=== PATIENT | female | born 1955 | race Caucasian/White ===

== ENCOUNTER 2021-03-25 09:55 | Inpatient (IN) ==
--- NOTE | 2021-03-25 10:17 | Emergency Department Note ---
HPI General Chief complaint: Fall Stated complaint: fall Time Seen by Provider: 03/25/21 09:57 Source: patient Mode of arrival: wheelchair Limitations: no limitations History of Present Illness HPI Narrative: Narrative: Patient presents emergency department for evaluation frequent falls. She states she fell a couple times this morning and then as well a couple times yesterday afternoon. No injury in the fall. Denies being out of any of her medication. No fever. His abdominal pain which is chronic in nature. She is had several recent visits to the emergency department. Nurse reports that the patient asked her if she was going on a float trip soon. Patient seemed a little bit confused to the nurse. Patient also complains of abdominal distention, decreased appetite, generalized weakness. No other complaints. Related Data Home Medications Medication Instructions Recorded Confirmed bupropion HCl 150 mg PO DAILY 07/06/15 02/10/21 buprenorphine-naloxone 8 mg PO TID 10/18/15 02/10/21 furosemide 20 mg PO PRN PRN 10/18/15 02/10/21 omeprazole 40 mg PO DAILY 10/18/15 02/10/21 rizatriptan [Maxalt] 5 mg PO PRN PRN 10/18/15 02/10/21 aripiprazole 5 mg PO HS 07/30/20 02/10/21 gabapentin 300 mg PO DAILY 07/30/20 02/10/21 losartan 50 mg PO DAILY 07/30/20 02/10/21 oxycodone 5 mg PO TID 07/30/20 02/10/21 cyanocobalamin (vitamin B-12) 1,000 mcg IM QMONTH 11/09/20 02/10/21 nortriptyline 50 mg PO QHS 11/09/20 02/10/21 vitamin A-vitamin C-vit E-min 1 tab PO QDAY 11/09/20 02/10/21 [Ocuvite] Previous Rx's Medication Instructions Recorded ondansetron HCl [Zofran] 4 mg PO Q8H PRN #14 tab 09/06/20 tramadol 50 mg tablet 50 mg PO Q6H PRN #10 tab 03/01/21 Allergies Allergy/AdvReac Type Severity Reaction Status Date / Time meperidine [From DEMEROL] AdvReac Unknown NAUSEA Verified 03/24/21 14:34 Review of Systems ROS ROS Narrative: Narrative: As above, all other systems reviewed and negative. [facility] Narrative Patient History Narrative: Narrative: Reviewed Medical/Surgical/Family History All Active Problems (Updated 03/25/21 @ 16:01 by Silas Candelaria MD) Abdominal pain, chronic, epigastric (Acute) Chronic abdominal pain (Acute) Chronic pain (Acute) Hypokalemia (Acute) Confusion (Acute) Abdominal pain (Acute) Alcohol abuse (Acute) Abdominal pain (Acute) Breakdown (mechanical) of implanted electronic neurostimulator, generator, initial encounter (Acute) Acute nausea with nonbilious vomiting (Acute) Acute exacerbation of chronic low back pain (Acute) Intractable cyclical vomiting with nausea (Acute) Dehydration (Acute) Elevated liver enzymes (Acute) Fatty infiltration of liver (Acute) Nausea & vomiting (Acute) Abdominal pain (Acute) Chronic pain of right hip (Acute) Radiculopathy of lumbar region (Acute) Trochanteric bursitis of right hip (Chronic) History of surgery (Chronic) Migraine (Chronic) Chronic bronchitis (Chronic) Depression (Chronic) GERD (gastroesophageal reflux disease) (Chronic) Degenerative joint disease (Chronic) Restless leg syndrome (Chronic) Chronic pain (Chronic) Radiculopathy, thoracic region (Chronic) Osteopenia (Chronic) Other specified complication of other internal prosthetic devices, implants and grafts, initial encounter (Chronic) Radiculopathy, lumbar region (Chronic) Lumbar paraspinal muscle spasm (Chronic) Back pain (Chronic) Lumbosacral disc disease (Chronic) Medical History Back pain Breakdown (mechanical) of implanted electronic neurostimulator, generator, initial encounter Chronic bronchitis Chronic pain Degenerative joint disease Depression GERD (gastroesophageal reflux disease) Lumbar paraspinal muscle spasm Migraine Osteopenia Other specified complication of other internal prosthetic devices, implants and grafts, initial encounter Radiculopathy, lumbar region Radiculopathy, thoracic region Restless leg syndrome Trochanteric bursitis of right hip Surgical History H/O: hysterectomy History of Anthony-en-Y gastric bypass History of surgery TF JEFF #1 Rt L1-2 w/sed 06/04/1911/10 TF JEFF #2 Rt L1-2 w/sed 11/20/1811/10 TF JEFF #1 Rt. L1-2 w/sed 10/28/201801/07 SCS IPG Unit re-anchoring w/sed 12/31/201511/07 SCS Permanent [facility] 11/05/1509/07 SCS Trial w/sed 09/02/201512/02 SCS Trial 12/22/09 w/sed 07/04 TESI #1, T8-9 Hx of cholecystectomy Family History Other No pertinent family history Social History Smoking Status: Former smoker Alcohol Intake Frequency: 2+ drinks per day Substance Use: does not use Exam Narrative Narrative: Narrative: Blood pressure 118/71 pulse 122 respirations 18 temperature 97.7 rest satting 100%. General Limitations: no limitations Head Head: Present atraumatic and normocephalic Eye Eye: Present normal appearance and PERRL ENT ENT: Present normal exam and normal oropharynx Neck Neck: Present normal inspection and full ROM Respiratory Respiratory: Absent respiratory distress Adbominal Abdominal: Present soft and other (No tenderness elicited on palpation); Absent distention, tenderness, guarding, rebound and rigidity Extremities Extremities: Present normal inspection and full ROM Neurological Neurological: Present alert, CN II-XII intact and motor sensory deficit Psychiatric Psychiatric: Present normal affect and normal mood Skin Skin: Present warm (WNL) and dry Course Vital Signs Vital signs: Vital Signs Temperature 97.7 F 03/25/21 09:56 Pulse Rate 122 H 03/25/21 09:56 Respiratory Rate 18 03/25/21 09:56 Blood Pressure 118/71 03/25/21 09:56 Pulse Oximetry (%) 100 03/25/21 09:56 Temperature 99.6 F H 03/25/21 14:48 Pulse Rate 113 H 03/25/21 15:46 Respiratory Rate 18 03/25/21 09:56 Blood Pressure 139/92 03/25/21 15:46 Pulse Oximetry (%) 89 L 03/25/21 15:46 [facility] MDM Narrative Medical decision making narrative: Narrative: CT brain as read by radiology showed no acute intracranial pathology. Chest x-ray shows no acute cardiopulmonary pathology. Abdominal x-ray shows nonspecific bowel gas pattern. Patient received Tylenol at her request and also received Toradol. She is hydrated IV fluids. I spoke with on-call hospitalist. Case reviewed in detail over the phone. Hospitalist is planning to come to the emergency department to evaluate the patient. Lab Data Result diagrams: 03/25/21 10:30 03/25/21 10:30 Labs: Lab Results 03/25/21 03/25/21 03/25/21 Range/Units 10:30 10:30 10:31 WBC 9.6 (4.5-11.0) K/mcL RBC 3.19 L (3.59-5.38) M/mcL Hgb 11.0 L (11.2-15.7) g/dL Hct 31.6 L (34.1-44.9) % MCV 99.1 (80.0-100.0) fL MCH 34.5 H (26.0-34.0) pg MCHC 34.8 (31.0-36.0) g/dL RDW 16.9 H (11.5-14.5) % Plt Count 347 (140-440) K/mcL MPV 10.4 (7.4-10.4) fL Neut % (Auto) 78.3 H (38.0-78.0) % Lymph % (Auto) 14.6 L (15.5-49.0) % [place] % (Auto) 6.7 (1.0-12.0) % Eos % (Auto) 0.2 (0.0-7.0) % Baso % (Auto) 0.2 (0.0-2.0) % Lymph # (Auto) 1.41 L (1.50-4.80) K/mcL [place] # (Auto) 0.65 (0.10-0.90) K/mcL Eos # (Auto) 0.02 (0.00-0.70) K/mcL Baso # (Auto) 0.02 (0.00-0.30) K/mcL Absolute Neutrophils 7.53 (1.80-8.00) K/mcL Sodium 137 (133-145) mmol/L Potassium 3.8 (3.3-5.1) mmol/L Chloride 100 (96-108) mmol/L Carbon Dioxide 22 (22-30) mmol/L Anion Gap 15.0 (8.0-16.0) BUN 11 (8-23) mg/dL Creatinine 0.8 (0.6-1.1) mg/dL GFR Calculation 76 Glucose 105 (70-105) mg/dL Calcium 8.3 L (8.6-10.4) mg/dL Total Bilirubin 0.9 (0.1-1.0) mg/dL AST 69 H (<32) U/L ALT 37 (<40) U/L Alkaline Phosphatase 268 H (39-117) U/L Ammonia (11-51) umol/L Total Protein 6.1 (5.9-8.4) gm/dL Albumin 3.0 L (3.2-5.2) gm/dL Globulin 3.1 (2.2-3.7) gm/dL Albumin/Globulin Ratio 1.0 (1.0-2.3) Urine Color Urine Appearance (Clear) Urine pH (5.0-9.0) Ur Specific [place] (1.000-1.035) Urine Protein (Negative) mg/dL Urine Glucose (UA) (Negative) mg/dL Urine Ketones (Negative) mg/dL Urine Occult Blood (Negative) mg/dL Urine Nitrate (Negative) Urine Bilirubin (Negative) mg/dL Urine Urobilinogen mg/dL Ur Leukocyte Esterase (Negative) /uL Urine RBC (0-3) /hpf Urine WBC (0-4) /hpf Ur Squamous Epith Cells (0-4) /hpf Urine Bacteria (0) /hpf Urine Mucus (None) /hpf Ur Culture Indicated? Urine Opiates Screen Ur Opiates Confirm Ur Oxycodone Screen Urine Methadone Screen Ur Methadone Confirm Ur Barbiturates Screen Ur Barbiturate Confirm Ur Phencyclidine Scrn Urine PCP Confirm Ur Amphetamines Screen U Amphetamines Confirm U Benzodiazepines Scrn U Benzodiazepine Confm Urine Cocaine Screen Urine Cocaine Confirm U Cannabinoids Confirm U Marijuana (THC) Screen Ethyl Alcohol < 0.010 (<0.010) gm/dL 03/25/21 03/25/21 03/25/21 Range/Units 11:06 14:00 14:07 WBC (4.5-11.0) K/mcL RBC (3.59-5.38) M/mcL Hgb (11.2-15.7) g/dL Hct (34.1-44.9) % MCV (80.0-100.0) fL MCH (26.0-34.0) pg MCHC (31.0-36.0) g/dL RDW (11.5-14.5) % Plt Count (140-440) K/mcL MPV (7.4-10.4) fL Neut % (Auto) (38.0-78.0) % Lymph % (Auto) (15.5-49.0) % [place] % (Auto) (1.0-12.0) % Eos % (Auto) (0.0-7.0) % Baso % (Auto) (0.0-2.0) % Lymph # (Auto) (1.50-4.80) K/mcL [place] # (Auto) (0.10-0.90) K/mcL Eos # (Auto) (0.00-0.70) K/mcL Baso # (Auto) (0.00-0.30) K/mcL Absolute Neutrophils (1.80-8.00) K/mcL Sodium (133-145) mmol/L Potassium (3.3-5.1) mmol/L Chloride (96-108) mmol/L Carbon Dioxide (22-30) mmol/L Anion Gap (8.0-16.0) BUN (8-23) mg/dL Creatinine (0.6-1.1) mg/dL GFR Calculation Glucose (70-105) mg/dL Calcium (8.6-10.4) mg/dL Total Bilirubin (0.1-1.0) mg/dL AST (<32) U/L ALT (<40) U/L Alkaline Phosphatase (39-117) U/L Ammonia 21 (11-51) umol/L Total Protein (5.9-8.4) gm/dL Albumin (3.2-5.2) gm/dL Globulin (2.2-3.7) gm/dL Albumin/Globulin Ratio (1.0-2.3) Urine Color Yellow Urine Appearance Cloudy A (Clear) Urine pH 5.0 (5.0-9.0) Ur Specific [place] 1.020 (1.000-1.035) Urine Protein 30 A (Negative) mg/dL Urine Glucose (UA) Negative (Negative) mg/dL Urine Ketones 5 A (Negative) mg/dL Urine Occult Blood 0.03 (Negative) mg/dL Urine Nitrate Negative (Negative) Urine Bilirubin Negative (Negative) mg/dL Urine Urobilinogen 2.0 A mg/dL Ur Leukocyte Esterase Negative (Negative) /uL Urine RBC < 1 (0-3) /hpf Urine WBC 4 (0-4) /hpf Ur Squamous Epith Cells 0 (0-4) /hpf Urine Bacteria Mod A (0) /hpf Urine Mucus Few A (None) /hpf Ur Culture Indicated? Yes Urine Opiates Screen None detected Ur Opiates Confirm TNP Ur Oxycodone Screen Suspect positive A Urine Methadone Screen None detected Ur Methadone Confirm TNP Ur Barbiturates Screen None detected Ur Barbiturate Confirm TNP Ur Phencyclidine Scrn None detected Urine PCP Confirm TNP Ur Amphetamines Screen None detected U Amphetamines Confirm TNP U Benzodiazepines Scrn None detected U Benzodiazepine Confm TNP Urine Cocaine Screen None detected Urine Cocaine Confirm TNP U Cannabinoids Confirm TNP U Marijuana (THC) Screen None detected Ethyl Alcohol (<0.010) gm/dL ED POC Tests ED POC Tests: LARRY - SARS Antigen Negative Discharge Plan Patient/Caregiver Discharge Instructions Pt seen by [facility]/PA only: No Clinical Impression: Confusion, Abdominal pain Patient Disposition: Xfer As Inpt ([facility]) Follow up with: Kristin Chance ARNP [Primary Care Provider] - Prescriptions: No Action tramadol 50 mg tablet 50 mg PO Q6H PRN (Reason: pain) Qty: 10 RF: 0 bupropion HCl 150 MG tablet extended release 24 hr 150 mg PO DAILY RF: 0 omeprazole 20 MG capsule 40 mg PO DAILY RF: 0 furosemide 20 MG tablet 20 mg PO PRN PRN (Reason: water retention) RF: 0 rizatriptan [Maxalt] 5 MG tablet 5 mg PO PRN PRN (Reason: Headache) RF: 0 buprenorphine-naloxone 1 EACH tablet, sublingual 8 mg PO TID RF: 0 gabapentin 300 mg capsule 300 mg PO DAILY RF: 0 losartan 100 mg tablet 50 mg PO DAILY RF: 0 aripiprazole 5 mg tablet 5 mg PO HS RF: 0 oxycodone 10 mg tablet 5 mg PO TID RF: 0 ondansetron HCl [Zofran] 4 mg tablet 4 mg PO Q8H PRN (Reason: nausea and vomiting) Qty: 14 RF: 0 Ocuvite Tablet 1 tab PO QDAY RF: 0 cyanocobalamin (vitamin B-12) 1,000 mcg/mL Solution 1,000 mcg IM QMONTH RF: 0 nortriptyline 50 mg Capsule 50 mg PO QHS RF: 0
--- NOTE | 2021-03-25 10:46 | Cat Scan Report ---
INDICATION: confusion, frequent falls COMPARISON: Previous CT scans dated 09/07/2020, 11/30/2015 TECHNIQUE: Axial noncontrast-enhanced images through the brain. Sagittally and coronally reformatted images. FINDINGS: Cerebral hemispheres:Negative. No intra-axial abnormality. No intra-axial hematoma. No localized mass effect. Brain volume is within normal limits. No hydrocephalus Brainstem and cerebellum:No intra-axial abnormality Extra-axial:No acute hemorrhage. No subdural or epidural hematoma. No subarachnoid hemorrhage. Basilar cisterns are normal Calvarial:No calvarial fracture. No lytic lesion Temporal bones are negative. No destructive lesions Soft tissue, orbits, sinuses:Orbits and visualized facial soft tissues and paranasal sinuses are negative IMPRESSION: 1. Negative noncontrast enhanced brain CT scan 2. No significant interval change The exam was performed using radiation dose optimization techniques including, but not limited to, automated exposure control, adjustment of the mA and/or kV according to patient size and use of iterative reconstruction technique. Interpreted and Authenticated by: Willian Marks 03/25/21
--- NOTE | 2021-03-25 11:03 | XRay Report ---
INDICATION: weakness TECHNIQUE: PA and lateral upright chest x-ray COMPARISON: Previous chest x-rays dated 03/15/2021, 01/27/2012 FINDINGS: Lungs: Linear densities in both lungs consistent with atelectasis or scarring. No parenchymal consolidation. No pulmonary parenchymal mass. Appearance is unchanged since 03/15/2021 Heart, vascular: No significant cardiomegaly. Pulmonary vascularity is normal. No pulmonary edema or pulmonary congestion Mediastinum, delon: No mediastinal widening. No hilar mass Pleura:Elevated right hemidiaphragm, unchanged Thoracic spine, ribs: No thoracic compression fracture. Ribs are negative. No fracture. No lytic lesion. Previous open reduction and internal fixation of right shoulder fracture IMPRESSION: 1. Bibasilar atelectasis or scarring 2. Mildly elevated right hemidiaphragm 3. No acute abnormality. No interval change Interpreted and Authenticated by: Willian Marks 03/25/21
--- NOTE | 2021-03-25 11:06 | XRay Report ---
INDICATION: bloating, decreased appetite TECHNIQUE: Supine and upright abdomen. COMPARISON: Abdominal and pelvic CT scan dated 03/19/2021, 03/15/2021 FINDINGS:Surgical clips in the right upper quadrant consistent with cholecystectomy surgical sutures and clips in the left upper quadrant secondary to previous gastric bypass Bowel gas pattern is unremarkable and nonspecific. No evidence for mechanical small bowel obstruction. There is gas and fecal material within the colon. There is no pneumatosis. No biliary or portal venous gas. There is prominent left convex lumbar scoliosis IMPRESSION: 1. Previous cholecystectomy and gastric bypass 2. Nonspecific and nonobstructive bowel gas pattern Interpreted and Authenticated by: Willian Marks 03/25/21
[2021-03-25 11:28] LABS: Alcohol, Blood < 10.0 mg/dL; Alcohol,Blood < 0.010 gm/dL (<0.010)
[2021-03-25 11:34] LABS: ALT/SGPT 37 U/L (<40); AST/SGOT 69 U/L (<32); Alkaline Phosphatase 268 U/L (39-117); Bilirubin,Total 0.9 mg/dL (0.1-1.0); Blood Urea Nitrogen 11 mg/dL (8-23); Calcium 8.3 mg/dL (8.6-10.4); Carbon Dioxide 22 mmol/L (22-30); Chloride 100 mmol/L (96-108); Globulin 3.1 gm/dL (2.2-3.7); Glomerular Filtration Rate 76; Glucose 105 mg/dL (70-105)
[2021-03-25 11:39] LABS: Basophils # (Auto) 0.02 K/mcL (0.00-0.30); Basophils % (Auto) 0.2 % (0.0-2.0); Eosinophils # (Auto) 0.02 K/mcL (0.00-0.70); Eosinophils % (Auto) 0.2 % (0.0-7.0); Hematocrit 31.6 % (34.1-44.9); Lymphocytes # (Auto) 1.41 K/mcL (1.50-4.80); Lymphocytes % (Auto) 14.6 % (15.5-49.0); Mean Cell Volume 99.1 fL (80.0-100.0); Mean Corpuscular HGB Conc 34.8 g/dL (31.0-36.0); Mean Platelet Volume 10.4 fL (7.4-10.4); Monocytes # (Auto) 0.65 K/mcL (0.10-0.90); Monocytes % (Auto) 6.7 % (1.0-12.0); Neutrophils % (Auto) 78.3 % (38.0-78.0); Platelet Count 347 K/mcL (140-440); RBC 3.19 M/mcL (3.59-5.38); Red Cell Distribution Width 16.9 % (11.5-14.5); WBC 9.6 K/mcL (4.5-11.0)
[2021-03-25] MEDS ORDERED: ACETAMINOPHEN 500 MG TABLET PO ONE (11:42)
[2021-03-25] MEDS ORDERED: ACETAMINOPHEN 325 MG TABLET PO ONE (11:44)
[2021-03-25 15:07] LABS: Appearance,Urine CLOUDY (Clear); Bacteria,Urine MOD /hpf (0); Bilirubin,Urine Negative (Negative); Color,Urine Yellow; Culture Indicated,Urine Yes; Glucose,Urine (UA) Negative (Negative); Ketones,Urine 5 mg/dL (Negative); Leukocyte Esterase,Urine Negative /uL (Negative); Mucus,Urine FEW /hpf; Nitrate,Urine Negative (Negative); Protein,Urine 30 mg/dL (Negative); Urine Blood 0.03 mg/dL (Negative); Urine RBC < 1 /hpf (0-3); Urine Squamous Epithelial Cell 0 /hpf (0-4); Urine WBC 4 /hpf (0-4)
[2021-03-25 15:08] LABS: Amphetamine Screen,Urine None detected; Barbiturate Screen,Urine None detected; Benzodiazepines Screen,Urine None detected; Cannabinoid Screen,Urine None detected; Cocaine Screen,Urine None detected; Opiate Screen,Urine None detected; Oxycodone, Urine Screen Suspect Positive; Phencyclidine Screen,Urine None detected
[2021-03-25] MEDS ORDERED: KETOROLAC 15 MG/ML VIAL IV ONE (15:13)
[2021-03-25] MEDS ORDERED: 0.9 % SODIUM CHLORIDE 1,000 ML IV ONE (15:41)
--- NOTE | 2021-03-25 16:41 | Internal Med History&Physical ---
HPI History of Present Illness Patient information: Note initiated : 03/25/21 at 4:26 pm Service Date, if different from initiated Date: [] Patient: Toshia Riley a 65 y/o F admitted on for fall. Chief Complaint: [] History of present illness: Ms. Riley is a 65 year old F Presents to the ED with generalized weakness and after falling, she called 911. She has been to the ED multiple times in the past few months for chronic abdominal pain. Had colonoscopy and EGD by Dr. Quiles. She also sees pain clinic for chronic right hip pain and radiculopathy. Also chronic low back pain. She says she has memory issues and has been worsening over the past year. Her fianc also has memory issues it sounds like. She is on several psychiatric medications. She denies drug use other than marijuana. She has 4 to 5 glasses of wine every night. Multiple abdominal imaging including CTs and ultrasounds which shows fatty liver. She has been afebrile. She seems confused at times per nurse's notes and a friend who called and talked with the ED staff. She does complain of constipation. Complains of dry skin and thin hair. CT brain was done in the ED which is unremarkable. She had a Mary test in the ED that was negative. Vital signs are essentially unremarkable except for a mild tachycardia. She has a mild anemia and microcytosis. Ammonia level was unremarkable urine was cloudy with some ketones but did not show any leukocyte esterase. Urine drug screen just showed positive for oxycodone which she takes. Patient states her last drink of alcohol was several nights ago. She says she does have withdrawal symptoms when she goes without for a few days. Review of Systems: Pertinent positives as above. Denies headache/fever/chills/nausea/vomiting/chest pain/cough/dyspnea/diarrhea. Remaining 10 point review of system reviewed negative PFSH PFSH All Active Problems (Updated 03/25/21 @ 16:01 by Silas Candelaria MD) Abdominal pain, chronic, epigastric (Acute) Chronic abdominal pain (Acute) Chronic pain (Acute) Hypokalemia (Acute) Confusion (Acute) Abdominal pain (Acute) Alcohol abuse (Acute) Abdominal pain (Acute) Breakdown (mechanical) of implanted electronic neurostimulator, generator, initial encounter (Acute) Acute nausea with nonbilious vomiting (Acute) Acute exacerbation of chronic low back pain (Acute) Intractable cyclical vomiting with nausea (Acute) Dehydration (Acute) Elevated liver enzymes (Acute) Fatty infiltration of liver (Acute) Nausea & vomiting (Acute) Abdominal pain (Acute) Chronic pain of right hip (Acute) Radiculopathy of lumbar region (Acute) Trochanteric bursitis of right hip (Chronic) History of surgery (Chronic) Migraine (Chronic) Chronic bronchitis (Chronic) Depression (Chronic) GERD (gastroesophageal reflux disease) (Chronic) Degenerative joint disease (Chronic) Restless leg syndrome (Chronic) Chronic pain (Chronic) Radiculopathy, thoracic region (Chronic) Osteopenia (Chronic) Other specified complication of other internal prosthetic devices, implants and grafts, initial encounter (Chronic) Radiculopathy, lumbar region (Chronic) Lumbar paraspinal muscle spasm (Chronic) Back pain (Chronic) Lumbosacral disc disease (Chronic) Medical History Back pain Breakdown (mechanical) of implanted electronic neurostimulator, generator, initial encounter Chronic bronchitis Chronic pain Degenerative joint disease Depression GERD (gastroesophageal reflux disease) Lumbar paraspinal muscle spasm Migraine Osteopenia Other specified complication of other internal prosthetic devices, implants and grafts, initial encounter Radiculopathy, lumbar region Radiculopathy, thoracic region Restless leg syndrome Trochanteric bursitis of right hip Surgical History H/O: hysterectomy History of Anthony-en-Y gastric bypass History of surgery TF JEFF #1 Rt L1-2 w/sed 06/04/1911/10 TF JEFF #2 Rt L1-2 w/sed 11/20/1811/10 TF JEFF #1 Rt. L1-2 w/sed 10/28/201801/07 SCS IPG Unit re-anchoring w/sed 12/31/201511/07 SCS Permanent TSMH 11/05/1509/07 SCS Trial w/sed 09/02/201512/02 SCS Trial 12/22/09 w/sed 07/04 TESI #1, T8-9 Hx of cholecystectomy Family History Other No pertinent family history Social History alcohol intake frequency: 2+ drinks per day substance use type: does not use MEDS/ALLERGIES Home Medications and Allergies Home Medications Medication Instructions Recorded Confirmed Type bupropion HCl 150 mg PO DAILY 07/06/15 02/10/21 History buprenorphine-naloxone 8 mg PO TID 10/18/15 02/10/21 History furosemide 20 mg PO PRN PRN 10/18/15 02/10/21 History omeprazole 40 mg PO DAILY 10/18/15 02/10/21 History rizatriptan [Maxalt] 5 mg PO PRN PRN 10/18/15 02/10/21 History aripiprazole 5 mg PO HS 07/30/20 02/10/21 History gabapentin 300 mg PO DAILY 07/30/20 02/10/21 History losartan 50 mg PO DAILY 07/30/20 02/10/21 History oxycodone 5 mg PO TID 07/30/20 02/10/21 History ondansetron HCl [Zofran] 4 mg PO Q8H PRN #14 tab 09/06/20 02/10/21 Rx cyanocobalamin (vitamin B-12) 1,000 mcg IM QMONTH 11/09/20 02/10/21 History nortriptyline 50 mg PO QHS 11/09/20 02/10/21 History vitamin A-vitamin C-vit E-min 1 tab PO QDAY 11/09/20 02/10/21 History [Ocuvite] tramadol 50 mg tablet 50 mg PO Q6H PRN #10 tab 03/01/21 03/01/21 Rx Allergies Allergy/AdvReac Type Severity Reaction Status Date / Time meperidine [From DEMEROL] AdvReac Unknown NAUSEA Verified 03/24/21 14:34 EXAM Constitutional Vitals: Temp Pulse Resp BP Pulse Ox 99.6 F H 113 H 18 139/92 89 L 03/25/21 14:48 03/25/21 15:46 03/25/21 09:56 03/25/21 15:46 03/25/21 15:46 Exam: General: Alert, Awake, No acute Distress, obese Eyes/N/T: EOMI, PERRL, Head/Neck: neck supple, normocephalic atraumatic CV: RRR, No murmurs, normal s1/s2 Pulm: Clear b/l, no wheezing/rhonchi/rales Abd: soft, nontender, +BS x4 Ext: no clubbing/cyanosis, 2-3+ b/l LE edema Neuro: A&Ox4 although slow to answer some questions - she had to take some time to think. no focal deficits, moves all extremities, CN 2-12 grossly intact, symmetrical strength b/l upper/lower, sensations intact b/l upper/lower Skin: warm, skin is noticeably dry especially lower extremities with some flaking DATA Data Completed and Pending Labs: Labs from last 24 hours 03/25/21 03/25/21 03/25/21 16:20 16:19 14:07 WBC RBC Hgb Hct MCV MCH MCHC RDW Plt Count MPV Neut % (Auto) Lymph % (Auto) Floyd % (Auto) Eos % (Auto) Baso % (Auto) Lymph # (Auto) Floyd # (Auto) Eos # (Auto) Baso # (Auto) Absolute Neutrophils Sodium Potassium Chloride Carbon Dioxide Anion Gap BUN Creatinine GFR Calculation Glucose Calcium Total Bilirubin AST ALT Alkaline Phosphatase Ammonia Total Protein Albumin Globulin Albumin/Globulin Ratio Vitamin B12 Pending Folate Pending TSH Urine Color Yellow Urine Appearance Cloudy A Urine pH 5.0 Ur Specific Bee 1.020 Urine Protein 30 A Urine Glucose (UA) Negative Urine Ketones 5 A Urine Occult Blood 0.03 Urine Nitrate Negative Urine Bilirubin Negative Urine Urobilinogen 2.0 A Ur Leukocyte Esterase Negative Urine RBC < 1 Urine WBC 4 Ur Squamous Epith Cells 0 Urine Bacteria Mod A Urine Mucus Few A Ur Culture Indicated? Yes Salicylates Urine Opiates Screen Ur Opiates Confirm Ur Oxycodone Screen Urine Methadone Screen Ur Methadone Confirm Acetaminophen Ur Barbiturates Screen Ur Barbiturate Confirm Ur Phencyclidine Scrn Urine PCP Confirm Ur Amphetamines Screen U Amphetamines Confirm U Benzodiazepines Scrn U Benzodiazepine Confm Urine Cocaine Screen Urine Cocaine Confirm U Cannabinoids Confirm U Marijuana (THC) Screen Ethyl Alcohol 03/25/21 03/25/21 03/25/21 14:00 11:06 10:31 WBC RBC Hgb Hct MCV MCH MCHC RDW Plt Count MPV Neut % (Auto) Lymph % (Auto) Floyd % (Auto) Eos % (Auto) Baso % (Auto) Lymph # (Auto) Floyd # (Auto) Eos # (Auto) Baso # (Auto) Absolute Neutrophils Sodium Potassium Chloride Carbon Dioxide Anion Gap BUN Creatinine GFR Calculation Glucose Calcium Total Bilirubin AST ALT Alkaline Phosphatase Ammonia 21 Total Protein Albumin Globulin Albumin/Globulin Ratio Vitamin B12 Folate TSH Urine Color Urine Appearance Urine pH Ur Specific Bee Urine Protein Urine Glucose (UA) Urine Ketones Urine Occult Blood Urine Nitrate Urine Bilirubin Urine Urobilinogen Ur Leukocyte Esterase Urine RBC Urine WBC Ur Squamous Epith Cells Urine Bacteria Urine Mucus Ur Culture Indicated? Salicylates Urine Opiates Screen None detected Ur Opiates Confirm TNP Ur Oxycodone Screen Suspect positive A Urine Methadone Screen None detected Ur Methadone Confirm TNP Acetaminophen Ur Barbiturates Screen None detected Ur Barbiturate Confirm TNP Ur Phencyclidine Scrn None detected Urine PCP Confirm TNP Ur Amphetamines Screen None detected U Amphetamines Confirm TNP U Benzodiazepines Scrn None detected U Benzodiazepine Confm TNP Urine Cocaine Screen None detected Urine Cocaine Confirm TNP U Cannabinoids Confirm TNP U Marijuana (THC) Screen None detected Ethyl Alcohol < 0.010 03/25/21 03/25/21 03/25/21 10:30 10:30 10:30 WBC RBC Hgb Hct MCV MCH MCHC RDW Plt Count MPV Neut % (Auto) Lymph % (Auto) Floyd % (Auto) Eos % (Auto) Baso % (Auto) Lymph # (Auto) Floyd # (Auto) Eos # (Auto) Baso # (Auto) Absolute Neutrophils Sodium 137 Potassium 3.8 Chloride 100 Carbon Dioxide 22 Anion Gap 15.0 BUN 11 Creatinine 0.8 GFR Calculation 76 Glucose 105 Calcium 8.3 L Total Bilirubin 0.9 AST 69 H ALT 37 Alkaline Phosphatase 268 H Ammonia Total Protein 6.1 Albumin 3.0 L Globulin 3.1 Albumin/Globulin Ratio 1.0 Vitamin B12 Folate TSH Pending Urine Color Urine Appearance Urine pH Ur Specific Bee Urine Protein Urine Glucose (UA) Urine Ketones Urine Occult Blood Urine Nitrate Urine Bilirubin Urine Urobilinogen Ur Leukocyte Esterase Urine RBC Urine WBC Ur Squamous Epith Cells Urine Bacteria Urine Mucus Ur Culture Indicated? Salicylates Pending Urine Opiates Screen Ur Opiates Confirm Ur Oxycodone Screen Urine Methadone Screen Ur Methadone Confirm Acetaminophen Pending Ur Barbiturates Screen Ur Barbiturate Confirm Ur Phencyclidine Scrn Urine PCP Confirm Ur Amphetamines Screen U Amphetamines Confirm U Benzodiazepines Scrn U Benzodiazepine Confm Urine Cocaine Screen Urine Cocaine Confirm U Cannabinoids Confirm U Marijuana (THC) Screen Ethyl Alcohol 03/25/21 10:30 WBC 9.6 RBC 3.19 L Hgb 11.0 L Hct 31.6 L MCV 99.1 MCH 34.5 H MCHC 34.8 RDW 16.9 H Plt Count 347 MPV 10.4 Neut % (Auto) 78.3 H Lymph % (Auto) 14.6 L Floyd % (Auto) 6.7 Eos % (Auto) 0.2 Baso % (Auto) 0.2 Lymph # (Auto) 1.41 L Floyd # (Auto) 0.65 Eos # (Auto) 0.02 Baso # (Auto) 0.02 Absolute Neutrophils 7.53 Sodium Potassium Chloride Carbon Dioxide Anion Gap BUN Creatinine GFR Calculation Glucose Calcium Total Bilirubin AST ALT Alkaline Phosphatase Ammonia Total Protein Albumin Globulin Albumin/Globulin Ratio Vitamin B12 Folate TSH Urine Color Urine Appearance Urine pH Ur Specific Bee Urine Protein Urine Glucose (UA) Urine Ketones Urine Occult Blood Urine Nitrate Urine Bilirubin Urine Urobilinogen Ur Leukocyte Esterase Urine RBC Urine WBC Ur Squamous Epith Cells Urine Bacteria Urine Mucus Ur Culture Indicated? Salicylates Urine Opiates Screen Ur Opiates Confirm Ur Oxycodone Screen Urine Methadone Screen Ur Methadone Confirm Acetaminophen Ur Barbiturates Screen Ur Barbiturate Confirm Ur Phencyclidine Scrn Urine PCP Confirm Ur Amphetamines Screen U Amphetamines Confirm U Benzodiazepines Scrn U Benzodiazepine Confm Urine Cocaine Screen Urine Cocaine Confirm U Cannabinoids Confirm U Marijuana (THC) Screen Ethyl Alcohol A/P Narrative A/P Narrative: A: *Generalized weakness/deconditioning/falling: *Encephalopathy (mild confusional state) acute on chronic: -DDx> polypharmacy vs chronic etoh dementia vs etoh w/d vs r/o hypothyroid -CT brain unremarkable, MRI -UDS unremarkable *EtOH abuse: *Fatty liver: likely 2/2 above *Depression/anxiety: *Chronic pain: hip/back/abdominal (including IBS) *HTN: *GERD: *Tobacco abuse: *Obesity: * P: -MRI brain pending -check TSH -pt/ot -CIWA, vitamins -hold gabapentin -hold lasix for now -cont ARB - -CM for placement -ppx: Lovenox Full code Time Spent With Patient Time: Total time spent is greater than 50% in coordination of care (as documented) at patient's floor/unit and/or counseling patient:
[2021-03-25 16:55] LABS: Acetaminophen < 5.0 ug/mL; Salicylate < 0.3 mg/dL
[2021-03-25 17:30] LABS: Folate 2.3 ng/mL (4.2-19.9)
[2021-03-25] MEDS ORDERED: chlordiazePOXIDE 25 MG CAPSULE PO PRN (17:41)
[2021-03-25] MEDS ORDERED: LACTULOSE 20 GM/30 ML ORAL.SOL PO PRN (17:41)
[2021-03-25] MEDS ORDERED: cloNIDine HCL 0.1 MG TABLET PO PRN (17:41)
[2021-03-25] MEDS ORDERED: METOCLOPRAMIDE 10 MG/2 ML VIAL IV PRN (17:41)
[2021-03-25] MEDS ORDERED: MAGNESIUM HYDROXIDE 30 ML ORAL.SUSP PO PRN (17:41)
[2021-03-25] MEDS ORDERED: POTASSIUM CHLORIDE 40 MEQ in DEXTROSE 5% IN WATER 500 ML IV PRN (17:41)
[2021-03-25] MEDS ORDERED: POLYETHYLENE GLYCOL 3350 17 GM PACKET PO PRN (17:41)
[2021-03-25] MEDS ORDERED: MAGNESIUM SULFATE 2 GM/50 ML BAG IV PRN (17:41)
[2021-03-25] MEDS ORDERED: ONDANSETRON 4 MG/2 ML VIAL IV PRN (17:41)
[2021-03-25] MEDS ORDERED: SENNOSIDES 1 TABLET PO PRN (17:41)
[2021-03-25] MEDS ORDERED: FOLIC ACID 1 MG TABLET PO SCH (17:41)
[2021-03-25] MEDS ORDERED: POTASSIUM CHLORIDE 20 MEQ TABLET PO PRN (17:41)
--- NOTE | 2021-03-25 19:10 | Magnetic Resonance Report ---
INDICATION: AMS COMPARISON: Previous CT scans dated 03/25/2021, 09/07/2020, 11/30/2015 TECHNIQUE: Sagittal T1 FLAIR images. Axial DWI, T1 FLAIR, T2 FLAIR, T2, GRE. Coronal T2 FSE. FINDINGS: Cerebral hemispheres:No restricted diffusion. No acute infarction. No susceptibility. No hemorrhagic abnormality. There is cerebral atrophy. There are prominent superficial subarachnoid spaces and ventricles. No focal intra-axial signal abnormality or localized mass effect. No midline shift. Brain stem and cerebellum:No intra-axial abnormalities. There is cerebellar atrophy Extra-axial:Normal flow void within vessels at the base of the brain. No subdural or epidural hematoma. No detectable subarachnoid hemorrhage Cavernous sinuses and basilar cisterns are normal. Skull:No calvarial lesions. No lytic lesion. No detectable fracture. Temporal bones:Mastoid sinuses are normal. No fluid or soft tissue intensity within either middle ear. Inner ear structures are normal Orbits, facial soft tissues:Globes are normal. No intraorbital abnormality. Facial soft tissues are negative Paranasal sinuses:Mild mucosal thickening within frontal, ethmoid, and maxillary sinuses. Appearance is consistent with mild sinusitis IMPRESSION: 1. Cerebral and cerebellar atrophy 2. No focal or acute intracranial abnormality Interpreted and Authenticated by: Willian Marks 03/25/21
[2021-03-25] MEDS: ACETAMINOPHEN 325 MG TABLET PO PRN (20:25)
[2021-03-25] MEDS: oxyCODONE/APAP 5/325MG TABLET PO PRN (20:44)
[2021-03-25] MEDS ORDERED: oxyCODONE/APAP 5/325MG TABLET PO ONE (20:47)
[2021-03-25] MEDS ORDERED: THIAMINE 100 MG/ML VIAL ONE (21:24)
[2021-03-25] MEDS: THIAMINE 100 MG in 0.9 % SODIUM CHLORIDE 50 ML IV SCH (21:27)
[2021-03-25] MEDS: DOCUSATE SODIUM 100 MG CAPSULE PO SCH (21:28)
[2021-03-25] MEDS: FOLIC ACID 1 MG TABLET PO SCH (21:28)
[2021-03-25] MEDS: 0.9 % SODIUM CHLORIDE 10 ML SYRINGE IV SCH ×2 (21:29→21:30)
[2021-03-25] MEDS: LORazepam 2 MG/ML VIAL IV PRN ×2 (21:49→23:19)
[2021-03-26] MEDS ORDERED: HALOPERIDOL LACTATE 5 MG/ML VIAL IV PRN ×2 (00:30→07:54)
[2021-03-26] MEDS: 0.9 % SODIUM CHLORIDE 10 ML SYRINGE IV SCH ×6 (05:51→20:20)
[2021-03-26 06:40] LABS: Basophils # (Auto) 0.02 K/mcL (0.00-0.30); Basophils % (Auto) 0.3 % (0.0-2.0); Eosinophils # (Auto) 0.09 K/mcL (0.00-0.70); Eosinophils % (Auto) 1.2 % (0.0-7.0); Hemoglobin 9.2 g/dL (11.2-15.7); Lymphocytes # (Auto) 1.22 K/mcL (1.50-4.80); Lymphocytes % (Auto) 15.9 % (15.5-49.0); Mean Cell Volume 100.7 fL (80.0-100.0); Mean Corpuscular HGB Conc 34.1 g/dL (31.0-36.0); Mean Platelet Volume 10.5 fL (7.4-10.4); Monocytes # (Auto) 0.48 K/mcL (0.10-0.90); Monocytes % (Auto) 6.3 % (1.0-12.0); Neutrophils % (Auto) 76.3 % (38.0-78.0); Platelet Count 282 K/mcL (140-440); RBC 2.68 M/mcL (3.59-5.38); Red Cell Distribution Width 17.2 % (11.5-14.5); WBC 7.7 K/mcL (4.5-11.0)
[2021-03-26 06:55] LABS: ALT/SGPT 31 U/L (<40); AST/SGOT 56 U/L (<32); Albumin 2.3 gm/dL (3.2-5.2); Alkaline Phosphatase 208 U/L (39-117); Bilirubin,Direct 0.4 mg/dL (<0.3); Bilirubin,Total 0.7 mg/dL (0.1-1.0); Blood Urea Nitrogen 9 mg/dL (8-23); Calcium 7.3 mg/dL (8.6-10.4); Carbon Dioxide 21 mmol/L (22-30); Chloride 105 mmol/L (96-108); Globulin 2.4 gm/dL (2.2-3.7); Glomerular Filtration Rate 100; Glucose 85 mg/dL (70-105); Lactate Dehydrogenase 345 U/L (135-225); Triglycerides 142 mg/dL (<150); Uric Acid 7.9 mg/dL (2.5-8.0)
[2021-03-26] MEDS ORDERED: NON FORMULARY MEDICATION 1 DOSE MISCELL (Oxycodone 10 mg tablet) PO PRN (07:21)
--- NOTE | 2021-03-26 07:21 | Internal Med Progress Note ---
SUBJECTIVE Subjective Patient information: Note initiated : 03/26/21 at 7:16 am Service Date, if different from initiated Date: [] Patient: Toshia Riley 65 y/o F admitted on 03/25/21 for fall. Chief Complaint: [] Interval history: History of present illness: Ms. Riley is a 65 year old F Presents to the ED with generalized weakness and after falling, she called 911. She has been to the ED multiple times in the past few months for chronic a bdominal pain. Had colonoscopy and EGD by Dr. Quiles. She also sees pain clinic for chronic right hip pain and radiculopathy. Also chronic low back pain. She says she has memory issues and has been worsening over the past year. Her fianc also has memory issues it sounds like. She is on several psychiatric medications. She denies drug use other than marijuana. She has 4 to 5 glasses of wine every night. Multiple abdominal imaging including CTs and ultrasounds which shows fatty liver. She has been afebrile. She seems confused at times per nurse's notes and a friend who called and talked with the ED staff. She does complain of constipation. Complains of dry skin and thin hair. CT brain was done in the ED which is unremarkable. She had a Mary test in the ED that was negative. Vital signs are essentially unremarkable except for a mild tachycardia. She has a mild anemia and microcytosis. Ammonia level was unremarkable urine was cloudy with some ketones but did not show any leukocyte esterase. Urine drug screen just showed positive for oxycodone which she takes. Patient states her last drink of alcohol was several nights ago. She says she does have withdrawal symptoms when she goes without for a few days. 03/26 Patient became severely agitated last night hallucinating. Received 6 mg of Ativan. Slept for the remainder of the evening. She is awake now and calm. Mildly confused. Review of Systems: denies headache/fever/chills/nausea/vomiting/chest or abdominal pain/co ugh/dyspnea/diarrhea. Otherwise see above. Constitutional Vitals: Vital Signs Temp Pulse Resp BP Pulse Ox 97.9 F 96 H 20 100/58 93 03/26/21 07:09 03/26/21 06:45 03/26/21 07:09 03/26/21 07:09 03/26/21 07:09 Period Temp Pulse Resp BP Sys/Baptiste Pulse Ox Last 24 Hr 97.3 F-99.6 F 94-172 16-20 83-148/58-126 89-100 Intake and Output 03/25/21 03/26/21 03/26/21 21:59 05:59 13:59 Intake Total 1000 531 Output Total 401 Balance 1000 130 Weight 96.87 kg Intake & Output: Intake & Output 03/25/21 03/26/21 03/26/21 21:59 05:59 13:59 Intake Total 1000 531 Output Total 401 Balance 1000 130 Weight 96.87 kg Intake: IV 1000 51 Sodium Chloride 0.9% 1,000 ml @ 1000 Wide Open IV BOLUS ONE Rx#: [id number] Vitamin B1 100 mg In Sodium 51 Chloride 0.9% 50 ml @ 50 mls/hr IV DAILY RAQUEL Rx#:[id number] Oral 480 Output: Void Amount 400 # of times incontinent of urine 1 Other: Urine Color [place] Urine Odor Strong Exam: General: Alert, Awake, No acute Distress, obese Eyes/N/T: EOMI, Head/Neck: neck supple, CV: mildly tachy but reg, No murmurs, Pulm: Clear b/l, no wheezing/rhonchi/rales Abd: soft, nontender, +BS x4 Ext: no clubbing/cyanosis, 1-2+ b/l LE edema Neuro: awake, follows commands, mildly confused, no focal deficits, moves all extremities, Skin: warm, dry OBJ DATA Labs CBC & Chem 7: 03/26/21 05:38 03/26/21 05:38 Labs: Abnormal Lab Results 03/26/21 03/26/21 03/25/21 05:38 05:38 16:20 RBC 2.68 L Hgb 9.2 L Hct 27.0 L MCV 100.7 H MCH 34.3 H RDW 17.2 H MPV 10.5 H Neut % (Auto) Lymph % (Auto) Lymph # (Auto) 1.22 L Carbon Dioxide 21 L Creatinine 0.5 L Calcium 7.3 L Direct Bilirubin 0.4 H GGT 386 H AST 56 H Alkaline Phosphatase 208 H Lactate Dehydrogenase 345 H Total Protein 4.7 L Albumin 2.3 L Vitamin B12 1429.0 H Folate Urine Appearance Urine Protein Urine Ketones Urine Urobilinogen Urine Bacteria Urine Mucus Ur Oxycodone Screen 03/25/21 03/25/21 03/25/21 16:19 14:07 14:00 RBC Hgb Hct MCV MCH RDW MPV Neut % (Auto) Lymph % (Auto) Lymph # (Auto) Carbon Dioxide Creatinine Calcium Direct Bilirubin GGT AST Alkaline Phosphatase Lactate Dehydrogenase Total Protein Albumin Vitamin B12 Folate 2.3 L Urine Appearance Cloudy A Urine Protein 30 A Urine Ketones 5 A Urine Urobilinogen 2.0 A Urine Bacteria Mod A Urine Mucus Few A Ur Oxycodone Screen Suspect positive A 03/25/21 03/25/21 10:30 10:30 RBC 3.19 L Hgb 11.0 L Hct 31.6 L MCV MCH 34.5 H RDW 16.9 H MPV Neut % (Auto) 78.3 H Lymph % (Auto) 14.6 L Lymph # (Auto) 1.41 L Carbon Dioxide Creatinine Calcium 8.3 L Direct Bilirubin GGT AST 69 H Alkaline Phosphatase 268 H Lactate Dehydrogenase Total Protein Albumin 3.0 L Vitamin B12 Folate Urine Appearance Urine Protein Urine Ketones Urine Urobilinogen Urine Bacteria Urine Mucus Ur Oxycodone Screen Meds: Medications Acetaminophen (Acetaminophen 325 Mg Tablet) 650 mg PO Q6HP PRN PRN Reason: PAIN/FEVER > 101 Last Admin: 03/25/21 20:25 Dose: 650 mg Documented by: Chlordiazepoxide HCl (Chlordiazepoxide 25 Mg Capsule) 50 mg PO Q4HP PRN PRN Reason: Alcohol Withdrawal Last Admin: 03/25/21 23:01 Dose: 50 mg Documented by: Clonidine HCl (Clonidine Hcl 0.1 Mg Tablet) 0.1 mg PO Q4HP PRN PRN Reason: Hypertension SBP>150 Docusate Sodium (Docusate Sodium 100 Mg Capsule) 100 mg PO BID [facility] Last Admin: 03/25/21 21:28 Dose: 100 mg Documented by: Enoxaparin Sodium (Enoxaparin 40 Mg/0.4 Ml Syringe) 40 mg SQ DAILY [facility] Folic Acid (Folic Acid 1 Mg Tablet) 5 mg PO DAILY [facility] Last Admin: 03/25/21 21:28 Dose: 5 mg Documented by: Haloperidol Lactate (Haloperidol Lactate 5 Mg/Ml Vial) 5 mg IV PRN PRN PRN Reason: Agitation Potassium Chloride 40 meq/ (Dextrose) 520 mls @ 130 mls/hr IV UD PRN PRN Reason: Potassium < 3 Magnesium Sulfate (Magnesium Sulfate) 2 gm in 50 mls @ 50 mls/hr IV UD PRN PRN Reason: Magnesium </= 1.6 Thiamine HCl 100 mg/ Sodium (Chloride) 51 mls @ 50 mls/hr IV DAILY [facility] Last Infusion: 03/25/21 22:30 Dose: Infused Documented by: Iron Carb/Multivit/[place]/Folic Acid (Multivit,Ther Iron,Ca,Fa & Min 1 Tablet) 1 tab PO DAILY RAQUEL Lactulose (Lactulose 20 Gm/30 Ml Oral.Gilda) 20 gm PO DAILYP PRN PRN Reason: Constipation Lorazepam (Lorazepam 2 Mg/Ml Vial) 0 mg IV Q4HP PRN; Protocol PRN Reason: Alcohol Withdrawal Last Admin: 03/25/21 23:19 Dose: 4 mg Documented by: Magnesium Hydroxide (Magnesium Hydroxide 30 Ml Oral.Susp) 30 ml PO DAILYP PRN PRN Reason: Constipation Metoclopramide HCl (Metoclopramide 10 Mg/2 Ml Vial) 10 mg IV Q6HP PRN PRN Reason: Nausea And Vomiting Ondansetron HCl (Ondansetron 4 Mg/2 Ml Vial) 4 mg IV Q4HP PRN PRN Reason: Nausea And Vomiting Oxycodone/Acetaminophen (Oxycodone/Apap 5/325mg Tablet) 1 tab PO Q4HP PRN PRN Reason: PAIN LEVEL 3-6 Last Admin: 03/25/21 20:44 Dose: 1 tab Documented by: Pantoprazole Sodium (Pantoprazole 40 Mg Tablet) 40 mg PO QAMAC [facility] Polyethylene Glycol (Polyethylene Glycol 3350 17 Gm Packet) 17 gm PO DAILYP PRN PRN Reason: Constipation Potassium Chloride (Potassium Chloride 20 Meq Tablet) 40 meq PO UD PRN PRN Reason: Potssium is 3-3.5 Potassium Chloride (Potassium Chloride 20 Meq Tablet) 40 meq PO UD PRN PRN Reason: Potassium < 3 Senna (Sennosides 1 Tablet) 2 tab PO DAILYP PRN PRN Reason: Constipation Sodium Chloride (0.9 % Sodium Chloride 10 Ml Syringe) 10 ml IV Q8 [facility] Last Admin: 03/26/21 05:51 Dose: 10 ml Documented by: Sodium Chloride (0.9 % Sodium Chloride 10 Ml Syringe) 10 ml IV Q8 [facility] Last Admin: 03/26/21 05:51 Dose: Not Given Documented by: A/P Narrative A/P Narrative: A: *ETOH w/d with DT's superimposed on likely chronic etoh dementia +/-polypharmacy -CT brain unremarkable, MRI with cerebral and cerebellar atrophy -UDS unremarkable, tsh/t4 ok *EtOH abuse: *Fatty liver: likely 2/2 above *Generalized weakness/deconditioning/falling: *Macrocytic Anemia: 2/2 folate deficiency + chronic etoh. b12 ok *Depression/anxiety: *Chronic pain: hip/back/abdominal (including IBS) *HTN: *GERD: *Tobacco abuse: *Obesity: * P: -tele monitoring -CIWA, vitamins, prn benzo -pt/ot -hold lasix for now -cont ARB -folate supp -CM for placement -ppx: Lovenox Full code Time Spent With Patient Time: Total time spent is greater than 50% in coordination of care (as documented) at patient's floor/unit and/or counseling patient:
[2021-03-26] MEDS ORDERED: SENNOSIDES 1 TABLET PO ONE (08:35)
[2021-03-26] MEDS ORDERED: POLYETHYLENE GLYCOL 3350 17 GM PACKET PO ONE (08:35)
[2021-03-26] MEDS ORDERED: CYANOCOBALAMIN 1,000 MCG/ML VIAL IM SCH (09:00)
[2021-03-26] MEDS ORDERED: [UNRECOGNIZED DRUG - OTHER] PO SCH (09:00)
[2021-03-26] MEDS ORDERED: BUPRENORPHINE NALOXONE PO SCH (09:00)
[2021-03-26] MEDS ORDERED: buPROPion 150 MG TAB.XL.24H PO SCH (09:00)
[2021-03-26] MEDS: PANTOPRAZOLE 40 MG TABLET PO SCH (09:09)
[2021-03-26] MEDS: LOSARTAN 50 MG TABLET PO SCH ×2 (09:10→10:32)
[2021-03-26] MEDS: MULTIVIT,THER IRON,CA,FA & MIN 1 TABLET PO SCH (09:10)
[2021-03-26] MEDS: FOLIC ACID 1 MG TABLET PO SCH (09:10)
[2021-03-26] MEDS: LORazepam 2 MG/ML VIAL IV PRN (09:11)
[2021-03-26] MEDS: DOCUSATE SODIUM 100 MG CAPSULE PO SCH (09:11)
[2021-03-26] MEDS: ENOXAPARIN 40 MG/0.4 ML SYRINGE SQ SCH (09:11)
[2021-03-26] MEDS: THIAMINE 100 MG in 0.9 % SODIUM CHLORIDE 50 ML IV SCH (09:25)
[2021-03-26] MEDS: POTASSIUM CHLORIDE 20 MEQ TABLET PO PRN (10:39)
[2021-03-26] MEDS ORDERED: GABAPENTIN 300 MG CAPSULE PO ONE (14:00)
[2021-03-26] MEDS: cefTRIAXone 1 GM VIAL IV SCH (20:19)
[2021-03-26] MEDS: NORTRIPTYLINE 25 MG CAPSULE PO SCH (20:20)
[2021-03-26] MEDS ORDERED: ARIPIPRAZOLE 5 MG TABLET PO SCH (21:00)
[2021-03-27] MEDS: DOCUSATE SODIUM 100 MG CAPSULE PO SCH ×3 (00:36→21:25)
[2021-03-27] MEDS: 0.9 % SODIUM CHLORIDE 10 ML SYRINGE IV SCH ×3 (04:27→21:25)
[2021-03-27 06:38] LABS: ALT/SGPT 28 U/L (<40); AST/SGOT 46 U/L (<32); Albumin 2.1 gm/dL (3.2-5.2); Albumin/Globulin Ratio 0.8 (1.0-2.3); Alkaline Phosphatase 197 U/L (39-117); Bilirubin,Direct 0.3 mg/dL (<0.3); Bilirubin,Total 0.5 mg/dL (0.1-1.0); Blood Urea Nitrogen 8 mg/dL (8-23); Calcium 7.7 mg/dL (8.6-10.4); Carbon Dioxide 24 mmol/L (22-30); Chloride 110 mmol/L (96-108); Globulin 2.6 gm/dL (2.2-3.7); Glomerular Filtration Rate 94; Glucose 89 mg/dL (70-105); Lactate Dehydrogenase 311 U/L (135-225); Phosphorous 2.4 mg/dL (2.5-4.5); Triglycerides 140 mg/dL (<150); Uric Acid 7.6 mg/dL (2.5-8.0)
--- NOTE | 2021-03-27 07:42 | Internal Med Progress Note ---
SUBJECTIVE Subjective Patient information: Note initiated : 03/27/21 at 7:37 am Service Date, if different from initiated Date: [] Patient: Toshia Riley 65 y/o F admitted on 03/25/21 for fall. Chief Complaint: [] Interval history: History of present illness: Ms. Riley is a 65 year old F Presents to the ED with generalized weakness and after falling, she called 911. She has been to the ED multiple times in the past few months for chronic a bdominal pain. Had colonoscopy and EGD by Dr. Quiles. She also sees pain clinic for chronic right hip pain and radiculopathy. Also chronic low back pain. She says she has memory issues and has been worsening over the past year. Her fianc also has memory issues it sounds like. She is on several psychiatric medications. She denies drug use other than marijuana. She has 4 to 5 glasses of wine every night. Multiple abdominal imaging including CTs and ultrasounds which shows fatty liver. She has been afebrile. She seems confused at times per nurse's notes and a friend who called and talked with the ED staff. She does complain of constipation. Complains of dry skin and thin hair. CT brain was done in the ED which is unremarkable. She had a Mary test in the ED that was negative. Vital signs are essentially unremarkable except for a mild tachycardia. She has a mild anemia and microcytosis. Ammonia level was unremarkable urine was cloudy with some ketones but did not show any leukocyte esterase. Urine drug screen just showed positive for oxycodone which she takes. Patient states her last drink of alcohol was several nights ago. She says she does have withdrawal symptoms when she goes without for a few days. 03/26 Patient became severely agitated last night hallucinating. Received 6 mg of Ativan. Slept for the remainder of the evening. She is awake now and calm. Mildly confused. 03/27 Patient feeling better. Says she slept better than the previous night. No new complaints. Good BMs. Low CIWA scores last night. Mildly low potassium. Review of Systems: denies headache/fever/chills/nausea/vomiting/chest or abdominal pain/cough/dyspnea/diarrhea. Otherwise see above. Constitutional Vitals: Vital Signs Temp Pulse Resp BP Pulse Ox 97 F 111 H 20 99/51 97 03/27/21 04:20 03/27/21 06:00 03/27/21 05:58 03/27/21 06:00 03/27/21 06:00 Period Temp Pulse Resp BP Sys/Baptiste Pulse Ox Last 24 Hr 97 F-99.1 F 92-111 18-22 83-130/51-79 93-100 Intake and Output 03/26/21 03/27/21 03/27/21 21:59 05:59 13:59 Intake Total 500 240 Output Total 3 Balance 497 240 Weight 97.976 kg Intake & Output: Intake & Output 03/26/21 03/27/21 03/27/21 21:59 05:59 13:59 Intake Total 500 240 Output Total 3 Balance 497 240 Weight 97.976 kg Intake: Oral 500 240 Output: Void Amount 0 # of times incontinent of urine 3 Other: Meal Breakfast Percent of Meal Consumed 75% Feeding Ability Total Assistance Stool Size Copious Small Stool Color Brown Brown Yellow Stool Consistency Liquid Loose Watery Loose # of times incontinent of 1 1 Bowels Exam: General: Awake, No acute Distress, obese Eyes/N/T: EOMI, Head/Neck: neck supple, CV: mildly tachy but reg, No murmurs, Pulm: Clear b/l, no wheezing/rhonchi/rales Abd: soft, nontender, +BS x4 Ext: no clubbing/cyanosis, 1+ b/l LE edema Neuro: Alert, follows commands, mentation better, no focal deficits, moves all extremities, Skin: warm, dry OBJ DATA Labs CBC & Chem 7: 03/26/21 05:38 03/27/21 05:23 Labs: Abnormal Lab Results 03/27/21 03/26/21 03/26/21 05:23 05:38 05:38 RBC 2.68 L Hgb 9.2 L Hct 27.0 L MCV 100.7 H MCH 34.3 H RDW 17.2 H MPV 10.5 H Neut % (Auto) Lymph % (Auto) Lymph # (Auto) 1.22 L Potassium 3.0 L Chloride 110 H Carbon Dioxide 21 L Creatinine 0.5 L Calcium 7.7 L 7.3 L Phosphorus 2.4 L Direct Bilirubin 0.3 H 0.4 H GGT 369 H 386 H AST 46 H 56 H Alkaline Phosphatase 197 H 208 H Lactate Dehydrogenase 311 H 345 H Total Protein 4.7 L 4.7 L Albumin 2.1 L 2.3 L Albumin/Globulin Ratio 0.8 L Vitamin B12 Folate Urine Appearance Urine Protein Urine Ketones Urine Urobilinogen Urine Bacteria Urine Mucus Ur Oxycodone Screen 03/25/21 03/25/21 03/25/21 16:20 16:19 14:07 RBC Hgb Hct MCV MCH RDW MPV Neut % (Auto) Lymph % (Auto) Lymph # (Auto) Potassium Chloride Carbon Dioxide Creatinine Calcium Phosphorus Direct Bilirubin GGT AST Alkaline Phosphatase Lactate Dehydrogenase Total Protein Albumin Albumin/Globulin Ratio Vitamin B12 1429.0 H Folate 2.3 L Urine Appearance Cloudy A Urine Protein 30 A Urine Ketones 5 A Urine Urobilinogen 2.0 A Urine Bacteria Mod A Urine Mucus Few A Ur Oxycodone Screen 03/25/21 03/25/21 03/25/21 14:00 10:30 10:30 RBC 3.19 L Hgb 11.0 L Hct 31.6 L MCV MCH 34.5 H RDW 16.9 H MPV Neut % (Auto) 78.3 H Lymph % (Auto) 14.6 L Lymph # (Auto) 1.41 L Potassium Chloride Carbon Dioxide Creatinine Calcium 8.3 L Phosphorus Direct Bilirubin GGT AST 69 H Alkaline Phosphatase 268 H Lactate Dehydrogenase Total Protein Albumin 3.0 L Albumin/Globulin Ratio Vitamin B12 Folate Urine Appearance Urine Protein Urine Ketones Urine Urobilinogen Urine Bacteria Urine Mucus Ur Oxycodone Screen Suspect positive A Meds: Medications Acetaminophen (Acetaminophen 325 Mg Tablet) 650 mg PO Q6HP PRN PRN Reason: PAIN/FEVER > 101 Last Admin: 03/25/21 20:25 Dose: 650 mg Documented by: Ceftriaxone Sodium (Ceftriaxone 1 Gm Vial) 1 gm IV DAILY [facility]; Protocol Last Admin: 03/26/21 20:19 Dose: 1 gm Documented by: Chlordiazepoxide HCl (Chlordiazepoxide 25 Mg Capsule) 50 mg PO Q4HP PRN PRN Reason: Alcohol Withdrawal Last Admin: 03/25/21 23:01 Dose: 50 mg Documented by: Clonidine HCl (Clonidine Hcl 0.1 Mg Tablet) 0.1 mg PO Q4HP PRN PRN Reason: Hypertension SBP>150 Docusate Sodium (Docusate Sodium 100 Mg Capsule) 100 mg PO BID [facility] Last Admin: 03/27/21 00:36 Dose: Not Given Documented by: Enoxaparin Sodium (Enoxaparin 40 Mg/0.4 Ml Syringe) 40 mg SQ DAILY [facility] Last Admin: 03/26/21 09:11 Dose: 40 mg Documented by: Folic Acid (Folic Acid 1 Mg Tablet) 5 mg PO DAILY [facility] Last Admin: 03/26/21 09:10 Dose: 5 mg Documented by: Gabapentin (Gabapentin 300 Mg Capsule) 300 mg PO DAILY [facility] Haloperidol Lactate (Haloperidol Lactate 5 Mg/Ml Vial) 5 mg IV Q8HP PRN PRN Reason: ANXIETY/SEDATION Potassium Chloride 40 meq/ (Dextrose) 520 mls @ 130 mls/hr IV UD PRN PRN Reason: Potassium < 3 Magnesium Sulfate (Magnesium Sulfate) 2 gm in 50 mls @ 50 mls/hr IV UD PRN PRN Reason: Magnesium </= 1.6 Thiamine HCl 100 mg/ Sodium (Chloride) 51 mls @ 50 mls/hr IV DAILY [facility] Last Infusion: 03/26/21 10:33 Dose: Infused Documented by: Iron Carb/Multivit/[place]/Folic Acid (Multivit,Ther Iron,Ca,Fa & Min 1 Tablet) 1 tab PO DAILY [facility] Last Admin: 03/26/21 09:10 Dose: 1 tab Documented by: Lactulose (Lactulose 20 Gm/30 Ml Oral.Gilda) 20 gm PO DAILYP PRN PRN Reason: Constipation Lorazepam (Lorazepam 2 Mg/Ml Vial) 0 mg IV Q4HP PRN; Protocol PRN Reason: Alcohol Withdrawal Last Admin: 03/26/21 09:11 Dose: 1 mg Documented by: Losartan Potassium (Losartan 50 Mg Tablet) 50 mg PO DAILY [facility] Last Admin: 03/26/21 10:32 Dose: Not Given Documented by: Magnesium Hydroxide (Magnesium Hydroxide 30 Ml Oral.Susp) 30 ml PO DAILYP PRN PRN Reason: Constipation Metoclopramide HCl (Metoclopramide 10 Mg/2 Ml Vial) 10 mg IV Q6HP PRN PRN Reason: Nausea And Vomiting Nortriptyline HCl (Nortriptyline 25 Mg Capsule) 75 mg PO HS [facility] Last Admin: 03/26/21 20:20 Dose: 75 mg Documented by: Ondansetron HCl (Ondansetron 4 Mg/2 Ml Vial) 4 mg IV Q4HP PRN PRN Reason: Nausea And Vomiting Oxycodone/Acetaminophen (Oxycodone/Apap 5/325mg Tablet) 1 tab PO Q4HP PRN PRN Reason: PAIN LEVEL 3-6 Last Admin: 03/25/21 20:44 Dose: 1 tab Documented by: Pantoprazole Sodium (Pantoprazole 40 Mg Tablet) 40 mg PO QAMAC [facility] Last Admin: 03/26/21 09:09 Dose: 40 mg Documented by: Polyethylene Glycol (Polyethylene Glycol 3350 17 Gm Packet) 17 gm PO DAILYP PRN PRN Reason: Constipation Potassium Chloride (Potassium Chloride 20 Meq Tablet) 40 meq PO UD PRN PRN Reason: Potssium is 3-3.5 Last Admin: 03/26/21 10:39 Dose: 40 meq Documented by: Potassium Chloride (Potassium Chloride 20 Meq Tablet) 40 meq PO UD PRN PRN Reason: Potassium < 3 Senna (Sennosides 1 Tablet) 2 tab PO DAILYP PRN PRN Reason: Constipation Sodium Chloride (0.9 % Sodium Chloride 10 Ml Syringe) 10 ml IV Q8 [facility] Last Admin: 03/27/21 04:27 Dose: 10 ml Documented by: A/P Narrative A/P Narrative: A: *ETOH w/d with DT's superimposed on likely chronic etoh dementia +/- polypharmacy: improving -CT brain unremarkable, MRI with cerebral and cerebellar atrophy -UDS unremarkable, tsh/t4 ok *EtOH abuse: *Fatty liver: likely 2/2 above *Generalized weakness/deconditioning/falling: *Macrocytic Anemia: 2/2 folate deficiency + chronic etoh. b12 ok *UTI(GNB): *Depression/anxiety: *Chronic pain: hip/back/abdominal (including IBS) *HTN: *GERD: *Tobacco abuse: *Obesity: * P: -tele monitoring -CIWA, vitamins, prn benzo -pt/ot -cont ARB -folate supp -rocephing pending -CM for placement -ppx: Lovenox / home ppi Full code Time Spent With Patient Time: Total time spent is greater than 50% in coordination of care (as documented) at patient's floor/unit and/or counseling patient:
[2021-03-27] MEDS: PANTOPRAZOLE 40 MG TABLET PO SCH (08:21)
[2021-03-27] MEDS: FOLIC ACID 1 MG TABLET PO SCH (08:21)
[2021-03-27] MEDS: MULTIVIT,THER IRON,CA,FA & MIN 1 TABLET PO SCH (08:21)
[2021-03-27] MEDS: ENOXAPARIN 40 MG/0.4 ML SYRINGE SQ SCH (08:22)
[2021-03-27] MEDS: LOSARTAN 50 MG TABLET PO SCH (08:22)
[2021-03-27] MEDS: POTASSIUM CHLORIDE 20 MEQ TABLET PO PRN (08:22)
[2021-03-27] MEDS: cefTRIAXone 1 GM VIAL IV SCH (08:22)
[2021-03-27] MEDS: GABAPENTIN 300 MG CAPSULE PO SCH (08:22)
[2021-03-27] MEDS: THIAMINE 100 MG in 0.9 % SODIUM CHLORIDE 50 ML IV SCH (08:56)
[2021-03-27] MEDS ORDERED: POTASSIUM PHOSPHATE 40 MEQ in DEXTROSE 5% IN WATER 500 ML IV ONE (09:00)
--- NOTE | 2021-03-27 09:42 | Discharge Summary ---
Discharge Provider Provider Patient information: Note initiated : 03/27/21 at 9:40 am Service Date, if different from initiated Date: [] Patient: Toshia Riley 65 y/o F admitted on 03/25/21 for fall. Chief Complaint: [] Date of admission: 03/25/21 17:29 Primary care physician: Kristin Chance Consults: 03/25/21 Consult to Physician [CONS] Stat Comment: Consulting Provider: Jose D Becker Reason For Exam: Physician to Consult Discharge Meds Discharge Medications Home Medications losartan 50 mg PO DAILY 07/30/20 [History Confirmed 03/25/21 Last Taken Unknown] oxycodone 10 mg PO QID 07/30/20 [History Confirmed 03/26/21 Last Taken Unknown] cyanocobalamin (vitamin B-12) 1,000 mcg IM QMONTH 11/09/20 [History Confirmed 03/25/21 Last Taken Unknown] nortriptyline 75 mg PO QHS 11/09/20 [History Confirmed 03/26/21 Last Taken Unkno wn] prochlorperazine maleate 10 mg PO Q6H PRN 03/26/21 [History Confirmed 03/26/21 Last Taken Unknown] folic acid 2 mg PO QDAY #60 tab 03/27/21 [Rx Last Taken Unknown] COURSE Hospital Course Hospital course: Interval history: History of present illness: Ms. Riley is a 65 year old F Presents to the ED with generalized weakness and after falling, she called 911. She has been to the ED multiple times in the past few months for chronic abdominal pain. Had colonoscopy and EGD by Dr. Quiles. She also sees pain clinic for chronic right hip pain and radiculopathy. Also chronic low back pain. She says she has memory issues and has been worsening over the past year. Her fianc also has memory issues it sounds like. She is on several psychiatric medications. She denies drug use other than marijuana. She has 4 to 5 glasses of wine every night. Multiple abdominal imaging including CTs and ultrasounds which shows fatty liver. She has been afebrile. She seems confused at times per nurse's notes and a friend who called and talked with the ED staff. She does complain of constipation. Complains of dry skin and thin hair. CT brain was done in the ED which is unremarkable. She had a Mary test in the ED that was negative. Vital signs are essentially unremarkable except for a mild tachycardia. She has a mild anemia and microcytosis. Ammonia level was unremarkable urine was cloudy with some ketones but did not show any leukocyte esterase. Urine drug screen just showed positive for oxycodone which she takes. Patient states her last drink of alcohol was several nights ago. She says she does have withdrawal symptoms when she goes without for a few days. 03/26 Patient became severely agitated last night hallucinating. Received 6 mg of Ativan. Slept for the remainder of the evening. She is awake now and calm. Mildly confused. 03/27 Patient feeling better. Says she slept better than the previous night. No new complaints. Good BMs. Low CIWA scores last night. Mildly low potassium. A: *ETOH w/d with DT's superimposed on likely chronic etoh dementia +/- polypharmacy: - MRI with cerebral and cerebellar atrophy *EtOH abuse: *Fatty liver: likely 2/2 above *Generalized weakness/deconditioning/falling: *Macrocytic Anemia: 2/2 folate deficiency + chronic etoh. b12 ok *UTI(GNB): *Depression/anxiety: *Chronic pain: hip/back/abdominal (including IBS) *HTN: *GERD: *Tobacco abuse: *Obesity: Discharge diagnosis: Alcohol withdrawal severe, likely underlying dementia alcohol abuse Secondary discharge diagnosis: Fatty liver generalized weakness deconditioning following macrocytic anemia folate deficiency urinary tract infection depression anxiety chronic back pain hip and abdominal hypertension GERD tobacco abuse obesity Time Spent with Patient Time attestation: Total time spent providing and/or coordinating discharge services: Time spent: Greater than 30 minutes EXAM Constitutional Vitals: Temp Pulse Resp BP Pulse Ox 97 F 111 H 20 122/68 97 03/27/21 04:20 03/27/21 06:00 03/27/21 05:58 03/27/21 08:26 03/27/21 06:00 Discharge Data Data Completed and Pending Labs on day of discharge: Labs from last 24 hours 03/27/21 05:23 Sodium 143 Potassium 3.0 L Chloride 110 H Carbon Dioxide 24 Anion Gap 9.0 BUN 8 Creatinine 0.6 GFR Calculation 94 Glucose 89 Uric Acid 7.6 Calcium 7.7 L Phosphorus 2.4 L Magnesium 1.7 Total Bilirubin 0.5 Direct Bilirubin 0.3 H GGT 369 H AST 46 H ALT 28 Alkaline Phosphatase 197 H Lactate Dehydrogenase 311 H Total Protein 4.7 L Albumin 2.1 L Globulin 2.6 Albumin/Globulin Ratio 0.8 L Triglycerides 140 Preliminary micro results at discharge 03/25/21 14:00 Urine Culture - Preliminary Urine - Catheterized Gram negative bacillus Discharge Plan Patient/Caregiver Discharge Instructions Activity: increase activity as tolerated Diet: Regular Diet Prescriptions: New folic acid 1 mg tablet 2 mg PO QDAY Qty: 60 RF: 0 Continued losartan 100 mg tablet 50 mg PO DAILY RF: 0 oxycodone 10 mg tablet 10 mg PO QID RF: 0 cyanocobalamin (vitamin B-12) 1,000 mcg/mL Solution 1,000 mcg IM QMONTH RF: 0 nortriptyline 50 mg Capsule 75 mg PO QHS RF: 0 prochlorperazine maleate 10 mg Tablet 10 mg PO Q6H PRN (Reason: Sleep) RF: 0 Discontinued tramadol 50 mg tablet 50 mg PO Q6H PRN (Reason: pain) Qty: 10 RF: 0 Follow Up Plan Follow up with: Kristin Chance ARNP [Primary Care Provider] - Patient Disposition: Xfer SNF Prognosis: Undetermined Rehab Potential: Fair I certify that the patient requires SNF services: Yes Overall status at discharge: patient is progressing back to baseline
[2021-03-27] MEDS ORDERED: FLU VACC QS2021-22(6MOS UP)/PF 60 MCG/0.5 ML SYRINGE IM ONE (10:00)
[2021-03-27] MEDS: oxyCODONE/APAP 5/325MG TABLET PO PRN ×2 (14:27→21:31)
[2021-03-27] MEDS: NORTRIPTYLINE 25 MG CAPSULE PO SCH (21:24)
[2021-03-28] MEDS: 0.9 % SODIUM CHLORIDE 10 ML SYRINGE IV SCH ×3 (05:49→21:38)
--- NOTE | 2021-03-28 07:18 | Internal Med Progress Note ---
SUBJECTIVE Subjective Patient information: Note initiated : 03/28/21 at 7:17 am Service Date, if different from initiated Date: [] Patient: Toshia Riley a 65 y/o F admitted on 03/25/21 for fall. Chief Complaint: [] Interval history: History of present illness: Ms. Riley is a 65 year old F Presents to the ED with generalized weakness and after falling, she called 911. She has been to the ED multiple times in the past few months for chronic a bdominal pain. Had colonoscopy and EGD by Dr. Quiles. She also sees pain clinic for chronic right hip pain and radiculopathy. Also chronic low back pain. She says she has memory issues and has been worsening over the past year. Her fianc also has memory issues it sounds like. She is on several psychiatric medications. She denies drug use other than marijuana. She has 4 to 5 glasses of wine every night. Multiple abdominal imaging including CTs and ultrasounds which shows fatty liver. She has been afebrile. She seems confused at times per nurse's notes and a friend who called and talked with the ED staff. She does complain of constipation. Complains of dry skin and thin hair. CT brain was done in the ED which is unremarkable. She had a Mary test in the ED that was negative. Vital signs are essentially unremarkable except for a mild tachycardia. She has a mild anemia and microcytosis. Ammonia level was unremarkable urine was cloudy with some ketones but did not show any leukocyte esterase. Urine drug screen just showed positive for oxycodone which she takes. Patient states her last drink of alcohol was several nights ago. She says she does have withdrawal symptoms when she goes without for a few days. 10 Patient became severely agitated last night hallucinating. Received 6 mg of Ativan. Slept for the remainder of the evening. She is awake now and calm. Mildly confused. 10/3 Patient feeling better. Says she slept better than the previous night. No new complaints. Good BMs. Low CIWA scores last night. Mildly low potassium. 10/4 Patient sitting up in chair sleeping. Arousable. No overnight issues. Pending a.m. labs. Pending placement. Review of Systems: denies headache/fever/chills/nausea/vomiting/chest or abdominal pain/cough/dyspnea/diarrhea. Otherwise see above. Constitutional Vitals: Vital Signs Temp Pulse Resp BP Pulse Ox 97.8 F 93 H 18 108/77 95 03/28/21 02:08 03/28/21 02:08 03/28/21 02:08 03/28/21 02:08 03/28/21 02:08 Period Temp Pulse Resp BP Sys/Baptiste Pulse Ox Last 24 Hr 97 F-98.7 F 62-98 18-20 89-122/61-77 94-97 Intake and Output 03/27/21 03/28/21 03/28/21 21:59 05:59 13:59 Intake Total 1100 480 Output Total 351 101 Balance 749 379 Weight 98.43 kg Intake & Output: Intake & Output 03/27/21 03/28/21 03/28/21 21:59 05:59 13:59 Intake Total 1100 480 Output Total 351 101 Balance 749 379 Weight 98.43 kg Intake: Oral 1100 480 Output: Void Amount 100 # of times incontinent of urine 1 1 Stool 350 Other: Meal Dinner Percent of Meal Consumed 50% Feeding Ability Needs Supervision Urine Color Bright Yellow Stool Size Copious Moderate Stool Color Yellow Brown Yellow Stool Consistency Liquid Loose Watery Loose # of times incontinent of 1 1 Bowels Exam: General: Awake, No acute Distress, obese Eyes/N/T: EOMI, Head/Neck: neck supple, CV: mildly tachy but reg, No murmurs, Pulm: Clear b/l, no wheezing/rhonchi/rales Abd: soft, nontender, +BS x4 Ext: no clubbing/cyanosis, 1+ b/l LE edema Neuro: Alert, follows commands, mentation better, no focal deficits, moves all extremities, Skin: warm, dry OBJ DATA Labs CBC & Chem 7: 03/26/21 05:38 03/27/21 05:23 Labs: Abnormal Lab Results 03/27/21 03/26/21 03/26/21 05:23 05:38 05:38 RBC 2.68 L Hgb 9.2 L Hct 27.0 L MCV 100.7 H MCH 34.3 H RDW 17.2 H MPV 10.5 H Neut % (Auto) Lymph % (Auto) Lymph # (Auto) 1.22 L Potassium 3.0 L Chloride 110 H Carbon Dioxide 21 L Creatinine 0.5 L Calcium 7.7 L 7.3 L Phosphorus 2.4 L Direct Bilirubin 0.3 H 0.4 H GGT 369 H 386 H AST 46 H 56 H Alkaline Phosphatase 197 H 208 H Lactate Dehydrogenase 311 H 345 H Total Protein 4.7 L 4.7 L Albumin 2.1 L 2.3 L Albumin/Globulin Ratio 0.8 L Vitamin B12 Folate Urine Appearance Urine Protein Urine Ketones Urine Urobilinogen Urine Bacteria Urine Mucus Ur Oxycodone Screen 03/25/21 03/25/21 03/25/21 16:20 16:19 14:07 RBC Hgb Hct MCV MCH RDW MPV Neut % (Auto) Lymph % (Auto) Lymph # (Auto) Potassium Chloride Carbon Dioxide Creatinine Calcium Phosphorus Direct Bilirubin GGT AST Alkaline Phosphatase Lactate Dehydrogenase Total Protein Albumin Albumin/Globulin Ratio Vitamin B12 1429.0 H Folate 2.3 L Urine Appearance Cloudy A Urine Protein 30 A Urine Ketones 5 A Urine Urobilinogen 2.0 A Urine Bacteria Mod A Urine Mucus Few A Ur Oxycodone Screen 03/25/21 03/25/21 03/25/21 14:00 10:30 10:30 RBC 3.19 L Hgb 11.0 L Hct 31.6 L MCV MCH 34.5 H RDW 16.9 H MPV Neut % (Auto) 78.3 H Lymph % (Auto) 14.6 L Lymph # (Auto) 1.41 L Potassium Chloride Carbon Dioxide Creatinine Calcium 8.3 L Phosphorus Direct Bilirubin GGT AST 69 H Alkaline Phosphatase 268 H Lactate Dehydrogenase Total Protein Albumin 3.0 L Albumin/Globulin Ratio Vitamin B12 Folate Urine Appearance Urine Protein Urine Ketones Urine Urobilinogen Urine Bacteria Urine Mucus Ur Oxycodone Screen Suspect positive A Meds: Medications Acetaminophen (Acetaminophen 325 Mg Tablet) 650 mg PO Q6HP PRN PRN Reason: PAIN/FEVER > 101 Last Admin: 03/25/21 20:25 Dose: 650 mg Documented by: Ceftriaxone Sodium (Ceftriaxone 1 Gm Vial) 1 gm IV DAILY [facility]; Protocol Last Admin: 03/27/21 08:22 Dose: 1 gm Documented by: Chlordiazepoxide HCl (Chlordiazepoxide 25 Mg Capsule) 50 mg PO Q4HP PRN PRN Reason: Alcohol Withdrawal Last Admin: 03/25/21 23:01 Dose: 50 mg Documented by: Clonidine HCl (Clonidine Hcl 0.1 Mg Tablet) 0.1 mg PO Q4HP PRN PRN Reason: Hypertension SBP>150 Docusate Sodium (Docusate Sodium 100 Mg Capsule) 100 mg PO BID [facility] Last Admin: 03/27/21 21:25 Dose: Not Given Documented by: Enoxaparin Sodium (Enoxaparin 40 Mg/0.4 Ml Syringe) 40 mg SQ DAILY [facility] Last Admin: 03/27/21 08:22 Dose: 40 mg Documented by: Folic Acid (Folic Acid 1 Mg Tablet) 5 mg PO DAILY [facility] Last Admin: 03/27/21 08:21 Dose: 5 mg Documented by: Gabapentin (Gabapentin 300 Mg Capsule) 300 mg PO DAILY [facility] Last Admin: 03/27/21 08:22 Dose: 300 mg Documented by: Haloperidol Lactate (Haloperidol Lactate 5 Mg/Ml Vial) 5 mg IV Q8HP PRN PRN Reason: ANXIETY/SEDATION Potassium Chloride 40 meq/ (Dextrose) 520 mls @ 130 mls/hr IV UD PRN PRN Reason: Potassium < 3 Magnesium Sulfate (Magnesium Sulfate) 2 gm in 50 mls @ 50 mls/hr IV UD PRN PRN Reason: Magnesium </= 1.6 Thiamine HCl 100 mg/ Sodium (Chloride) 51 mls @ 50 mls/hr IV DAILY [facility] Last Infusion: 03/27/21 13:23 Dose: Infused Documented by: Iron Carb/Multivit/Appliance Servicer/Folic Acid (Multivit,Ther Iron,Ca,Fa & Min 1 Tablet) 1 tab PO DAILY [facility] Last Admin: 03/27/21 08:21 Dose: 1 tab Documented by: Lactulose (Lactulose 20 Gm/30 Ml Oral.Gilda) 20 gm PO DAILYP PRN PRN Reason: Constipation Lorazepam (Lorazepam 2 Mg/Ml Vial) 0 mg IV Q4HP PRN; Protocol PRN Reason: Alcohol Withdrawal Last Admin: 03/26/21 09:11 Dose: 1 mg Documented by: Losartan Potassium (Losartan 50 Mg Tablet) 50 mg PO DAILY [facility] Last Admin: 03/27/21 08:22 Dose: 50 mg Documented by: Magnesium Hydroxide (Magnesium Hydroxide 30 Ml Oral.Susp) 30 ml PO DAILYP PRN PRN Reason: Constipation Metoclopramide HCl (Metoclopramide 10 Mg/2 Ml Vial) 10 mg IV Q6HP PRN PRN Reason: Nausea And Vomiting Nortriptyline HCl (Nortriptyline 25 Mg Capsule) 75 mg PO HS [facility] Last Admin: 03/27/21 21:24 Dose: 75 mg Documented by: Ondansetron HCl (Ondansetron 4 Mg/2 Ml Vial) 4 mg IV Q4HP PRN PRN Reason: Nausea And Vomiting Oxycodone/Acetaminophen (Oxycodone/Apap 5/325mg Tablet) 1 tab PO Q4HP PRN PRN Reason: PAIN LEVEL 3-6 Last Admin: 03/27/21 21:31 Dose: 1 tab Documented by: Pantoprazole Sodium (Pantoprazole 40 Mg Tablet) 40 mg PO QAMAC [facility] Last Admin: 03/27/21 08:21 Dose: 40 mg Documented by: Polyethylene Glycol (Polyethylene Glycol 3350 17 Gm Packet) 17 gm PO DAILYP PRN PRN Reason: Constipation Potassium Chloride (Potassium Chloride 20 Meq Tablet) 40 meq PO UD PRN PRN Reason: Potssium is 3-3.5 Last Admin: 03/27/21 08:22 Dose: 40 meq Documented by: Potassium Chloride (Potassium Chloride 20 Meq Tablet) 40 meq PO UD PRN PRN Reason: Potassium < 3 Senna (Sennosides 1 Tablet) 2 tab PO DAILYP PRN PRN Reason: Constipation Sodium Chloride (0.9 % Sodium Chloride 10 Ml Syringe) 10 ml IV Q8 [facility] Last Admin: 03/28/21 05:49 Dose: 10 ml Documented by: Tramadol HCl (Tramadol 50 Mg Tablet) 50 mg PO Q6HP PRN; Protocol PRN Reason: pain A/P Narrative A/P Narrative: A: *ETOH w/d with DT's superimposed on likely chronic etoh dementia +/- polypharmacy: improving -CT brain unremarkable, MRI with cerebral and cerebellar atrophy -UDS unremarkable, tsh/t4 ok *EtOH abuse: *Fatty liver: likely 2/2 above *Generalized weakness/deconditioning/falling: *Macrocytic Anemia: 2/2 folate deficiency + chronic etoh. b12 ok *UTI(Klebsiella): *Depression/anxiety: *Chronic pain: hip/back/abdominal (including IBS) *HTN: *GERD: *Tobacco abuse: *Obesity: * P: -tele monitoring -CIWA, vitamins, prn benzo -pt/ot -cont ARB -folate supp -rocephin -CM for placement -ppx: Lovenox / home ppi Full code Time Spent With Patient Time: Total time spent is greater than 50% in coordination of care (as documented) at patient's floor/unit and/or counseling patient:
[2021-03-28 08:07] LABS: ALT/SGPT 32 U/L (<40); AST/SGOT 54 U/L (<32); Albumin 2.6 gm/dL (3.2-5.2); Albumin/Globulin Ratio 0.9 (1.0-2.3); Alkaline Phosphatase 219 U/L (39-117); Bilirubin,Direct 0.3 mg/dL (<0.3); Bilirubin,Total 0.5 mg/dL (0.1-1.0); Blood Urea Nitrogen 6 mg/dL (8-23); Calcium 7.6 mg/dL (8.6-10.4); Carbon Dioxide 22 mmol/L (22-30); Chloride 107 mmol/L (96-108); Globulin 2.9 gm/dL (2.2-3.7); Glomerular Filtration Rate 94; Glucose 76 mg/dL (70-105); Lactate Dehydrogenase 353 U/L (135-225); Phosphorous 3.2 mg/dL (2.5-4.5); Triglycerides 143 mg/dL (<150); Uric Acid 7.9 mg/dL (2.5-8.0)
[2021-03-28] MEDS ORDERED: POTASSIUM CHLORIDE 20 MEQ TABLET PO ONE (08:16)
[2021-03-28] MEDS: FOLIC ACID 1 MG TABLET PO SCH (08:19)
[2021-03-28] MEDS: GABAPENTIN 300 MG CAPSULE PO SCH (08:19)
[2021-03-28] MEDS: ENOXAPARIN 40 MG/0.4 ML SYRINGE SQ SCH (08:19)
[2021-03-28] MEDS: ACETAMINOPHEN 325 MG TABLET PO PRN ×2 (08:20→17:05)
[2021-03-28] MEDS: cefTRIAXone 1 GM VIAL IV SCH (08:21)
[2021-03-28] MEDS: MULTIVIT,THER IRON,CA,FA & MIN 1 TABLET PO SCH (08:33)
[2021-03-28] MEDS: THIAMINE 100 MG in 0.9 % SODIUM CHLORIDE 50 ML IV SCH (08:33)
[2021-03-28] MEDS: PANTOPRAZOLE 40 MG TABLET PO SCH (08:33)
[2021-03-28] MEDS ORDERED: POTASSIUM CHLORIDE 40 MEQ in DEXTROSE 5% IN WATER 500 ML IV ONE (09:00)
[2021-03-28] MEDS: DOCUSATE SODIUM 100 MG CAPSULE PO SCH ×2 (09:46→21:53)
[2021-03-28] MEDS: LOSARTAN 50 MG TABLET PO SCH (14:11)
[2021-03-28] MEDS: POTASSIUM CHLORIDE 20 MEQ TABLET PO SCH (17:05)
[2021-03-28] MEDS: oxyCODONE/APAP 5/325MG TABLET PO PRN (20:36)
[2021-03-28] MEDS: NORTRIPTYLINE 25 MG CAPSULE PO SCH (20:36)
[2021-03-28] MEDS: traMADol 50 MG TABLET PO PRN (21:38)
[2021-03-29] MEDS: oxyCODONE/APAP 5/325MG TABLET PO PRN ×3 (00:53→23:40)
[2021-03-29] MEDS: LORazepam 2 MG/ML VIAL IV PRN (01:15)
[2021-03-29] MEDS: 0.9 % SODIUM CHLORIDE 10 ML SYRINGE IV SCH ×3 (05:09→22:53)
[2021-03-29] MEDS ORDERED: LOPERAMIDE 2 MG CAPSULE PO ONE (07:51)
--- NOTE | 2021-03-29 07:53 | Internal Med Progress Note ---
SUBJECTIVE Subjective Patient information: Note initiated : 03/29/21 at 7:51 am Service Date, if different from initiated Date: [] Patient: Toshia Riley a 65 y/o F admitted on 03/25/21 for fall. Chief Complaint: [] Interval history: History of present illness: Ms. Riley is a 65 year old F Presents to the ED with generalized weakness and after falling, she called 911. She has been to the ED multiple times in the past few months for chronic a bdominal pain. Had colonoscopy and EGD by Dr. Quiles. She also sees pain clinic for chronic right hip pain and radiculopathy. Also chronic low back pain. She says she has memory issues and has been worsening over the past year. Her fianc also has memory issues it sounds like. She is on several psychiatric medications. She denies drug use other than marijuana. She has 4 to 5 glasses of wine every night. Multiple abdominal imaging including CTs and ultrasounds which shows fatty liver. She has been afebrile. She seems confused at times per nurse's notes and a friend who called and talked with the ED staff. She does complain of constipation. Complains of dry skin and thin hair. CT brain was done in the ED which is unremarkable. She had a Mary test in the ED that was negative. Vital signs are essentially unremarkable except for a mild tachycardia. She has a mild anemia and microcytosis. Ammonia level was unremarkable urine was cloudy with some ketones but did not show any leukocyte esterase. Urine drug screen just showed positive for oxycodone which she takes. Patient states her last drink of alcohol was several nights ago. She says she does have withdrawal symptoms when she goes without for a few days. 03/26 Patient became severely agitated last night hallucinating. Received 6 mg of Ativan. Slept for the remainder of the evening. She is awake now and calm. Mildly confused. 03/27 Patient feeling better. Says she slept better than the previous night. No new complaints. Good BMs. Low CIWA scores last night. Mildly low potassium. 03/28 Patient sitting up in chair sleeping. Arousable. No overnight issues. Pending a.m. labs. Pending placement. 03/29 No overnight event or new complaints. Patient weak. Diarrhea continues we will check C. difficile. Some confusion or forgetfulness, did get 2 mg Ativan last night. Review of Systems: denies headache/fever/chills/chest or abdominal pain/cough/dyspnea/diarrhea. Otherwise see above. Constitutional Vitals: Vital Signs Temp Pulse Resp BP Pulse Ox 96.7 F L 101 H 16 101/68 95 03/29/21 07:17 03/29/21 07:17 03/29/21 07:17 03/29/21 07:17 03/29/21 07:17 Period Temp Pulse Resp BP Sys/Baptiste Pulse Ox Last 24 Hr 96.7 F-98.8 F 75-101 16-18 66-132/44-74 95-98 Intake and Output 03/28/21 03/29/21 03/29/21 21:59 05:59 13:59 Intake Total 740 640 Output Total 250 300 Balance 490 340 Weight 98.52 kg Intake & Output: Intake & Output 03/28/21 03/29/21 03/29/21 21:59 05:59 13:59 Intake Total 740 640 Output Total 250 300 Balance 490 340 Weight 98.52 kg Intake: Oral 740 640 Output: Urine/Stool Mix 250 300 Other: Meal Dinner Percent of Meal Consumed 75% Feeding Ability Assist with Tray Set Up Stool Size Moderate Small Stool Color Yellow Yellow Stool Consistency Liquid Liquid Loose Loose # Bowel Movements 5 # of times incontinent of 1 Bowels Exam: General: Awake, No acute Distress, obese Eyes/N/T: EOMI, Head/Neck: neck supple, CV: mildly tachy but reg, No murmurs, Pulm: Clear b/l, no wheezing/rhonchi/rales Abd: soft, nontender, +BS x4 Ext: no clubbing/cyanosis, 1+ b/l LE edema Neuro: Alert, follows commands, confusion or forgetfulness at times, no focal deficits, moves all extremities, Skin: warm, dry OBJ DATA Labs CBC & Chem 7: 03/29/21 05:42 03/29/21 05:42 Labs: Abnormal Lab Results 03/28/21 03/27/21 05:38 05:23 Potassium 2.6 L* 3.0 L Chloride 110 H BUN 6 L Calcium 7.6 L 7.7 L Phosphorus 2.4 L Direct Bilirubin 0.3 H 0.3 H GGT 390 H 369 H AST 54 H 46 H Alkaline Phosphatase 219 H 197 H Lactate Dehydrogenase 353 H 311 H Total Protein 5.5 L 4.7 L Albumin 2.6 L 2.1 L Albumin/Globulin Ratio 0.9 L 0.8 L Meds: Medications Acetaminophen (Acetaminophen 325 Mg Tablet) 650 mg PO Q6HP PRN PRN Reason: PAIN/FEVER > 101 Last Admin: 03/28/21 17:05 Dose: 650 mg Documented by: Ceftriaxone Sodium (Ceftriaxone 1 Gm Vial) 1 gm IV DAILY [facility]; Protocol Last Admin: 03/28/21 08:21 Dose: 1 gm Documented by: Chlordiazepoxide HCl (Chlordiazepoxide 25 Mg Capsule) 50 mg PO Q4HP PRN PRN Reason: Alcohol Withdrawal Last Admin: 03/25/21 23:01 Dose: 50 mg Documented by: Clonidine HCl (Clonidine Hcl 0.1 Mg Tablet) 0.1 mg PO Q4HP PRN PRN Reason: Hypertension SBP>150 Docusate Sodium (Docusate Sodium 100 Mg Capsule) 100 mg PO BID [facility] Last Admin: 03/28/21 21:53 Dose: Not Given Documented by: Enoxaparin Sodium (Enoxaparin 40 Mg/0.4 Ml Syringe) 40 mg SQ DAILY [facility] Last Admin: 03/28/21 08:19 Dose: 40 mg Documented by: Folic Acid (Folic Acid 1 Mg Tablet) 5 mg PO DAILY [facility] Last Admin: 03/28/21 08:19 Dose: 5 mg Documented by: Gabapentin (Gabapentin 300 Mg Capsule) 300 mg PO DAILY [facility] Last Admin: 03/28/21 08:19 Dose: 300 mg Documented by: Haloperidol Lactate (Haloperidol Lactate 5 Mg/Ml Vial) 5 mg IV Q8HP PRN PRN Reason: ANXIETY/SEDATION Potassium Chloride 40 meq/ (Dextrose) 520 mls @ 130 mls/hr IV UD PRN PRN Reason: Potassium < 3 Magnesium Sulfate (Magnesium Sulfate) 2 gm in 50 mls @ 50 mls/hr IV UD PRN PRN Reason: Magnesium </= 1.6 Thiamine HCl 100 mg/ Sodium (Chloride) 51 mls @ 50 mls/hr IV DAILY [facility] Last Admin: 03/28/21 08:33 Dose: 50 mls/hr Documented by: Iron Carb/Multivit/Figure Clerk/Folic Acid (Multivit,Ther Iron,Ca,Fa & Min 1 Tablet) 1 tab PO DAILY [facility] Last Admin: 03/28/21 08:33 Dose: 1 tab Documented by: Lactulose (Lactulose 20 Gm/30 Ml Oral.Gilda) 20 gm PO DAILYP PRN PRN Reason: Constipation Lorazepam (Lorazepam 2 Mg/Ml Vial) 0 mg IV Q4HP PRN; Protocol PRN Reason: Alcohol Withdrawal Last Admin: 03/29/21 01:15 Dose: 2 mg Documented by: Losartan Potassium (Losartan 50 Mg Tablet) 50 mg PO DAILY [facility] Last Admin: 03/28/21 14:11 Dose: 50 mg Documented by: Magnesium Hydroxide (Magnesium Hydroxide 30 Ml Oral.Susp) 30 ml PO DAILYP PRN PRN Reason: Constipation Metoclopramide HCl (Metoclopramide 10 Mg/2 Ml Vial) 10 mg IV Q6HP PRN PRN Reason: Nausea And Vomiting Nortriptyline HCl (Nortriptyline 25 Mg Capsule) 75 mg PO [facility] Last Admin: 03/28/21 20:36 Dose: 75 mg Documented by: Ondansetron HCl (Ondansetron 4 Mg/2 Ml Vial) 4 mg IV Q4HP PRN PRN Reason: Nausea And Vomiting Oxycodone/Acetaminophen (Oxycodone/Apap 5/325mg Tablet) 1 tab PO Q4HP PRN PRN Reason: PAIN LEVEL 3-6 Last Admin: 03/29/21 00:53 Dose: 1 tab Documented by: Pantoprazole Sodium (Pantoprazole 40 Mg Tablet) 40 mg PO QAMAC [facility] Last Admin: 03/28/21 08:33 Dose: 40 mg Documented by: Polyethylene Glycol (Polyethylene Glycol 3350 17 Gm Packet) 17 gm PO DAILYP PRN PRN Reason: Constipation Potassium Chloride (Potassium Chloride 20 Meq Tablet) 40 meq PO UD PRN PRN Reason: Potssium is 3-3.5 Last Admin: 03/27/21 08:22 Dose: 40 meq Documented by: Potassium Chloride (Potassium Chloride 20 Meq Tablet) 40 meq PO UD PRN PRN Reason: Potassium < 3 Last Admin: 03/28/21 08:19 Dose: 40 meq Documented by: Potassium Chloride (Potassium Chloride 20 Meq Tablet) 20 meq PO BIDCC [facility] Last Admin: 03/28/21 17:05 Dose: 20 meq Documented by: Senna (Sennosides 1 Tablet) 2 tab PO DAILYP PRN PRN Reason: Constipation Sodium Chloride (0.9 % Sodium Chloride 10 Ml Syringe) 10 ml IV Q8 [facility] Last Admin: 03/29/21 05:09 Dose: 10 ml Documented by: Tramadol HCl (Tramadol 50 Mg Tablet) 50 mg PO Q6HP PRN; Protocol PRN Reason: pain Last Admin: 03/28/21 21:38 Dose: 50 mg Documented by: A/P Narrative A/P Narrative: A: *ETOH w/d with DT's superimposed on 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 b12 ok *UTI(Klebsiella): *Depression/anxiety: *Chronic pain: hip/back/abdominal (including IBS) *HTN: *GERD: *Tobacco abuse: *Obesity: *Hypokalemia: Improved *Diarrhea since admit not improving: P: -tele monitoring -CIWA, vitamins, prn benzo -pt/ot -check c. diff -cont ARB -folate supp -rocephin -CM for placement -ppx: Lovenox / home ppi Full code Time Spent With Patient Time: Total time spent is greater than 50% in coordination of care (as d ocumented) at patient's floor/unit and/or counseling patient:
[2021-03-29] MEDS: THIAMINE 100 MG in 0.9 % SODIUM CHLORIDE 50 ML IV SCH (08:18)
[2021-03-29] MEDS: ENOXAPARIN 40 MG/0.4 ML SYRINGE SQ SCH (08:19)
[2021-03-29] MEDS: POTASSIUM CHLORIDE 20 MEQ TABLET PO SCH ×2 (08:19→12:34)
[2021-03-29] MEDS: MULTIVIT,THER IRON,CA,FA & MIN 1 TABLET PO SCH (08:19)
[2021-03-29] MEDS: FOLIC ACID 1 MG TABLET PO SCH (08:19)
[2021-03-29] MEDS: cefTRIAXone 1 GM VIAL IV SCH (08:19)
[2021-03-29 08:20] LABS: Blood Urea Nitrogen 7 mg/dL (8-23); Calcium 7.8 mg/dL (8.6-10.4); Carbon Dioxide 20 mmol/L (22-30); Chloride 114 mmol/L (96-108); Glomerular Filtration Rate 94; Glucose 77 mg/dL (70-105)
[2021-03-29] MEDS: PANTOPRAZOLE 40 MG TABLET PO SCH (08:20)
[2021-03-29] MEDS: GABAPENTIN 300 MG CAPSULE PO SCH (08:20)
[2021-03-29 08:28] LABS: Basophils # (Auto) 0.03 K/mcL (0.00-0.30); Basophils % (Auto) 0.6 % (0.0-2.0); Eosinophils # (Auto) 0.03 K/mcL (0.00-0.70); Eosinophils % (Auto) 0.6 % (0.0-7.0); Hematocrit 29.3 % (34.1-44.9); Hemoglobin 9.4 g/dL (11.2-15.7); Lymphocytes % (Auto) 20.2 % (15.5-49.0); Mean Cell Volume 106.2 fL (80.0-100.0); Mean Corpuscular HGB Conc 32.1 g/dL (31.0-36.0); Mean Platelet Volume 10.9 fL (7.4-10.4); Monocytes # (Auto) 0.37 K/mcL (0.10-0.90); Monocytes % (Auto) 7.5 % (1.0-12.0); Neutrophils % (Auto) 71.1 % (38.0-78.0); Platelet Count 278 K/mcL (140-440); RBC 2.76 M/mcL (3.59-5.38); Red Cell Distribution Width 18.6 % (11.5-14.5)
[2021-03-29] MEDS: LOSARTAN 50 MG TABLET PO SCH (12:33)
[2021-03-29] MEDS: ACETAMINOPHEN 325 MG TABLET PO PRN (12:34)
[2021-03-29] MEDS: LOPERAMIDE 2 MG CAPSULE PO PRN ×2 (18:46→22:53)
[2021-03-29] MEDS: NORTRIPTYLINE 25 MG CAPSULE PO SCH (20:11)
[2021-03-29] MEDS: OLANZapine 5 MG TABLET PO SCH (20:12)
[2021-03-30] MEDS: 0.9 % SODIUM CHLORIDE 10 ML SYRINGE IV SCH ×3 (05:21→22:03)
[2021-03-30] MEDS: oxyCODONE/APAP 5/325MG TABLET PO PRN ×3 (07:23→22:02)
[2021-03-30] MEDS: PANTOPRAZOLE 40 MG TABLET PO SCH (07:23)
--- NOTE | 2021-03-30 07:57 | Internal Med Progress Note ---
SUBJECTIVE Subjective Patient information: Note initiated : 03/30/21 at 7:55 am Service Date, if different from initiated Date: [] Patient: Toshia Riley a 65 y/o F admitted on 03/25/21 for fall. Chief Complaint: [] Interval history: History of present illness: Ms. Riley is a 65 year old F Presents to the ED with generalized weakness and after falling, she called 911. She has been to the ED multiple times in the past few months for chronic a bdominal pain. Had colonoscopy and EGD by Dr. Quiles. She also sees pain clinic for chronic right hip pain and radiculopathy. Also chronic low back pain. She says she has memory issues and has been worsening over the past year. Her fianc also has memory issues it sounds like. She is on several psychiatric medications. She denies drug use other than marijuana. She has 4 to 5 glasses of wine every night. Multiple abdominal imaging including CTs and ultrasounds which shows fatty liver. She has been afebrile. She seems confused at times per nurse's notes and a friend who called and talked with the ED staff. She does complain of constipation. Complains of dry skin and thin hair. CT brain was done in the ED which is unremarkable. She had a Mary test in the ED that was negative. Vital signs are essentially unremarkable except for a mild tachycardia. She has a mild anemia and microcytosis. Ammonia level was unremarkable urine was cloudy with some ketones but did not show any leukocyte esterase. Urine drug screen just showed positive for oxycodone which she takes. Patient states her last drink of alcohol was several nights ago. She says she does have withdrawal symptoms when she goes without for a few days. 03/26 Patient became severely agitated last night hallucinating. Received 6 mg of Ativan. Slept for the remainder of the evening. She is awake now and calm. Mildly confused. 03/27 Patient feeling better. Says she slept better than the previous night. No new complaints. Good BMs. Low CIWA scores last night. Mildly low potassium. 03/28 Patient sitting up in chair sleeping. Arousable. No overnight issues. Pending a.m. labs. Pending placement. 03/29 No overnight event or new complaints. Patient weak. Diarrhea continues we will check C. difficile. Some confusion or forgetfulness, did get 2 mg Ativan last night. 03/30 Patient states he is feeling better today. She sitting up in a chair eating breakfast. No complaints. Patient states diarrhea is improving. Review of Systems: denies headache/fever/chills/chest or abdominal pain/cough/dyspnea/diarrhea. Otherwise see above. Constitutional Vitals: Vital Signs Temp Pulse Resp BP Pulse Ox 97.9 F 100 H 18 93/61 97 03/30/21 03:42 03/30/21 03:42 03/30/21 03:42 03/30/21 03:42 03/30/21 03:42 Period Temp Pulse Resp BP Sys/Baptiste Pulse Ox Last 24 Hr 96.7 F-98.0 F 96-102 16-19 93-110/61-75 92-100 Intake and Output 03/29/21 03/30/21 03/30/21 21:59 05:59 13:59 Intake Total 301 450 Output Total 576 76 Balance -275 374 Weight 98.112 kg Intake & Output: Intake & Output 03/29/21 03/30/21 03/30/21 21:59 05:59 13:59 Intake Total 301 450 Output Total 576 76 Balance -275 374 Weight 98.112 kg Intake: IV 51 Vitamin B1 100 mg In Sodium 51 Chloride 0.9% 50 ml @ 50 mls/hr IV DAILY [facility] Rx#:[id number] Oral 450 GI Tube Flush 250 Output: Void Amount 400 # of times incontinent of urine 1 1 Stool 175 75 Other: Stool Size Small Stool Color Yellow Yellow Stool Consistency Liquid Liquid Loose Loose # Bowel Movements 2 # of times incontinent of 1 1 Bowels Exam: General: Awake, No acute Distress, obese Eyes/N/T: EOMI, Head/Neck: neck supple, CV: mildly tachy but reg, No murmurs, Pulm: Clear b/l, no wheezing/rhonchi/rales Abd: soft, nontender, +BS x4 Ext: no clubbing/cyanosis, mild b/l LE edema Neuro: Alert, follows commands, no focal deficits, moves all extremities, Skin: warm, dry OBJ DATA Labs CBC & Chem 7: 03/29/21 05:42 03/29/21 05:42 Labs: Abnormal Lab Results 03/29/21 03/29/21 03/28/21 05:42 05:42 05:38 RBC 2.76 L Hgb 9.4 L Hct 29.3 L MCV 106.2 H MCH 34.1 H RDW 18.6 H MPV 10.9 H Lymph # (Auto) 1.00 L Potassium 2.6 L* Chloride 114 H Carbon Dioxide 20 L BUN 7 L 6 L Calcium 7.8 L 7.6 L Direct Bilirubin 0.3 H GGT 390 H AST 54 H Alkaline Phosphatase 219 H Lactate Dehydrogenase 353 H Total Protein 5.5 L Albumin 2.6 L Albumin/Globulin Ratio 0.9 L Meds: Medications Acetaminophen (Acetaminophen 325 Mg Tablet) 650 mg PO Q6HP PRN PRN Reason: PAIN/FEVER > 101 Last Admin: 03/29/21 12:34 Dose: 650 mg Documented by: Ceftriaxone Sodium (Ceftriaxone 1 Gm Vial) 1 gm IV DAILY [facility]; Protocol Last Admin: 03/29/21 08:19 Dose: 1 gm Documented by: Chlordiazepoxide HCl (Chlordiazepoxide 25 Mg Capsule) 50 mg PO Q4HP PRN PRN Reason: Alcohol Withdrawal Last Admin: 03/25/21 23:01 Dose: 50 mg Documented by: Clonidine HCl (Clonidine Hcl 0.1 Mg Tablet) 0.1 mg PO Q4HP PRN PRN Reason: Hypertension SBP>150 Enoxaparin Sodium (Enoxaparin 40 Mg/0.4 Ml Syringe) 40 mg SQ DAILY [facility] Last Admin: 03/29/21 08:19 Dose: 40 mg Documented by: Folic Acid (Folic Acid 1 Mg Tablet) 5 mg PO DAILY [facility] Last Admin: 03/29/21 08:19 Dose: 5 mg Documented by: Gabapentin (Gabapentin 300 Mg Capsule) 300 mg PO DAILY [facility] Last Admin: 03/29/21 08:20 Dose: 300 mg Documented by: Haloperidol Lactate (Haloperidol Lactate 5 Mg/Ml Vial) 5 mg IV Q8HP PRN PRN Reason: ANXIETY/SEDATION Potassium Chloride 40 meq/ (Dextrose) 520 mls @ 130 mls/hr IV UD PRN PRN Reason: Potassium < 3 Magnesium Sulfate (Magnesium Sulfate) 2 gm in 50 mls @ 50 mls/hr IV UD PRN PRN Reason: Magnesium </= 1.6 Thiamine HCl 100 mg/ Sodium (Chloride) 51 mls @ 50 mls/hr IV DAILY [facility] Last Infusion: 03/29/21 19:13 Dose: Infused Documented by: Iron Carb/Multivit/[place]/Folic Acid (Multivit,Ther Iron,Ca,Fa & Min 1 Tablet) 1 tab PO DAILY [facility] Last Admin: 03/29/21 08:19 Dose: 1 tab Documented by: Lactulose (Lactulose 20 Gm/30 Ml Oral.Gilda) 20 gm PO DAILYP PRN PRN Reason: Constipation Loperamide HCl (Loperamide 2 Mg Capsule) 2 mg PO PRN PRN PRN Reason: Diarrhea Last Admin: 03/29/21 22:53 Dose: 2 mg Documented by: Losartan Potassium (Losartan 50 Mg Tablet) 50 mg PO DAILY [facility] Last Admin: 03/29/21 12:33 Dose: 50 mg Documented by: Magnesium Hydroxide (Magnesium Hydroxide 30 Ml Oral.Susp) 30 ml PO DAILYP PRN PRN Reason: Constipation Metoclopramide HCl (Metoclopramide 10 Mg/2 Ml Vial) 10 mg IV Q6HP PRN PRN Reason: Nausea And Vomiting Nortriptyline HCl (Nortriptyline 25 Mg Capsule) 75 mg PO [facility] Last Admin: 03/29/21 20:11 Dose: 75 mg Documented by: Olanzapine (Olanzapine 5 Mg Tablet) 5 mg PO [facility] Last Admin: 03/29/21 20:12 Dose: 5 mg Documented by: Ondansetron HCl (Ondansetron 4 Mg/2 Ml Vial) 4 mg IV Q4HP PRN PRN Reason: Nausea And Vomiting Oxycodone/Acetaminophen (Oxycodone/Apap 5/325mg Tablet) 1 tab PO Q4HP PRN PRN Reason: PAIN LEVEL 3-6 Last Admin: 03/30/21 07:23 Dose: 1 tab Documented by: Pantoprazole Sodium (Pantoprazole 40 Mg Tablet) 40 mg PO [facility] Last Admin: 03/30/21 07:23 Dose: 40 mg Documented by: Polyethylene Glycol (Polyethylene Glycol 3350 17 Gm Packet) 17 gm PO DAILYP PRN PRN Reason: Constipation Potassium Chloride (Potassium Chloride 20 Meq Tablet) 40 meq PO UD PRN PRN Reason: Potssium is 3-3.5 Last Admin: 03/27/21 08:22 Dose: 40 meq Documented by: Potassium Chloride (Potassium Chloride 20 Meq Tablet) 40 meq PO UD PRN PRN Reason: Potassium < 3 Last Admin: 03/28/21 08:19 Dose: 40 meq Documented by: Potassium Chloride (Potassium Chloride 20 Meq Tablet) 20 meq PO DAILY [facility] Last Admin: 03/29/21 12:34 Dose: 20 meq Documented by: Senna (Sennosides 1 Tablet) 2 tab PO DAILYP PRN PRN Reason: Constipation Sodium Chloride (0.9 % Sodium Chloride 10 Ml Syringe) 10 ml IV Q8 [facility] Last Admin: 03/30/21 05:21 Dose: 10 ml Documented by: Tramadol HCl (Tramadol 50 Mg Tablet) 50 mg PO Q6HP PRN; Protocol PRN Reason: pain Last Admin: 03/28/21 21:38 Dose: 50 mg Documented by: A/P Narrative A/P Narrative: A: *ETOH w/d with DT's superimposed on 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 b12 ok *UTI(Klebsiella): finished abx *Depression/anxiety: *Chronic pain: hip/back/abdominal (including IBS) *HTN: *GERD: *Tobacco abuse: *Obesity: *Hypokalemia: Improved *Diarrhea since admit not improving: c.diff neg P: -pt/ot -imodium -cont ARB -folate supp -rocephin d/c -CM for placement -ppx: Lovenox / home ppi Full code Time Spent With Patient Time: Total time spent is greater than 50% in coordination of care (as documented) at patient's floor/unit and/or counseling patient:
[2021-03-30] MEDS ORDERED: METOPROLOL TARTRATE 25 MG TABLET PO ONE (08:49)
[2021-03-30] MEDS: LOSARTAN 50 MG TABLET PO SCH (09:00)
[2021-03-30] MEDS: MULTIVIT,THER IRON,CA,FA & MIN 1 TABLET PO SCH (09:12)
[2021-03-30] MEDS: THIAMINE 100 MG in 0.9 % SODIUM CHLORIDE 50 ML IV SCH (09:12)
[2021-03-30] MEDS: GABAPENTIN 300 MG CAPSULE PO SCH (09:12)
[2021-03-30] MEDS: POTASSIUM CHLORIDE 20 MEQ TABLET PO SCH (09:13)
[2021-03-30] MEDS: ENOXAPARIN 40 MG/0.4 ML SYRINGE SQ SCH (09:13)
[2021-03-30] MEDS: FOLIC ACID 1 MG TABLET PO SCH (09:13)
[2021-03-30] MEDS: LOPERAMIDE 2 MG CAPSULE PO PRN ×2 (14:02→22:03)
[2021-03-30] MEDS: OLANZapine 5 MG TABLET PO SCH (22:02)
[2021-03-30] MEDS: NORTRIPTYLINE 25 MG CAPSULE PO SCH (22:03)
[2021-03-31] MEDS: traMADol 50 MG TABLET PO PRN ×2 (03:14→12:15)
[2021-03-31] MEDS: 0.9 % SODIUM CHLORIDE 10 ML SYRINGE IV SCH ×3 (05:44→20:19)
[2021-03-31] MEDS: ACETAMINOPHEN 325 MG TABLET PO PRN (06:01)
[2021-03-31] MEDS: PANTOPRAZOLE 40 MG TABLET PO SCH (07:33)
[2021-03-31] MEDS: FOLIC ACID 1 MG TABLET PO SCH (08:01)
[2021-03-31] MEDS: THIAMINE 100 MG in 0.9 % SODIUM CHLORIDE 50 ML IV SCH (08:01)
[2021-03-31] MEDS: ENOXAPARIN 40 MG/0.4 ML SYRINGE SQ SCH (08:01)
[2021-03-31] MEDS: oxyCODONE/APAP 5/325MG TABLET PO PRN ×3 (08:02→20:18)
[2021-03-31] MEDS: MULTIVIT,THER IRON,CA,FA & MIN 1 TABLET PO SCH (08:02)
[2021-03-31] MEDS: POTASSIUM CHLORIDE 20 MEQ TABLET PO SCH (08:02)
[2021-03-31] MEDS: GABAPENTIN 300 MG CAPSULE PO SCH (08:02)
[2021-03-31] MEDS: LOSARTAN 50 MG TABLET PO SCH (08:03)
[2021-03-31] MEDS ORDERED: CYCLOBENZAPRINE 10 MG TABLET PO PRN (13:43)
--- NOTE | 2021-03-31 13:45 | Internal Med Progress Note ---
SUBJECTIVE Subjective Patient information: Note initiated : 03/31/21 at 1:44 pm Service Date, if different from initiated Date: [] Patient: Toshia Riley a 65 y/o F admitted on 03/25/21 for fall. Chief Complaint: [alcohol withdrawal, UTI] Interval history: History of present illness: Ms. Riley is a 65 year old F Presents to the ED with generalized weakness and after falling, she called 911. She has been to the ED multiple times in the past few months for chronic abdominal pain. Had colonoscopy and EGD by Dr. Quiles. She also sees pain cl in for chronic right hip pain and radiculopathy. Also chronic low back pain. She says she has memory issues and has been worsening over the past year. Her fianc also has memory issues it sounds like. She is on several psychiatric medications. She denies drug use other than marijuana. She has 4 to 5 glasses of wine every night. Multiple abdominal imaging including CTs and ultrasounds which shows fatty liver. She has been afebrile. She seems confused at times per nurse's notes and a friend who called and talked with the ED staff. She does complain of constipation. Complains of dry skin and thin hair. CT brain was done in the ED which is unremarkable. She had a Mary test in the ED that was negative. Vital signs are essentially unremarkable except for a mild tachycardia. She has a mild anemia and microcytosis. Ammonia level was unremarkable urine was cloudy with some ketones but did not show any leukocyte esterase. Urine drug screen just showed positive for oxycodone which she takes. Patient states her last drink of alcohol was several nights ago. She says she does have withdrawal symptoms when she goes without for a few days. 03/26 Patient became severely agitated last night hallucinating. Received 6 mg of Ativan. Slept for the remainder of the evening. She is awake now and calm. Mildly confused. 03/27 Patient feeling better. Says she slept better than the previous night. No new complaints. Good BMs. Low CIWA scores last night. Mildly low potassium. 03/28 Patient sitting up in chair sleeping. Arousable. No overnight issues. Pending a.m. labs. Pending placement. 03/29 No overnight event or new complaints. Patient weak. Diarrhea continues we will check C. difficile. Some confusion or forgetfulness, did get 2 mg Ativan last night. 03/30 Patient states he is feeling better today. She sitting up in a chair eating breakfast. No complaints. Patient states diarrhea is improving. 03/31: There was no major overnight events. CIWA score up to 7 but mostly 1. Afebrile. Patient is c/o back muscle spasm. Denies fever or chills or sweating. Denies anx iety. Denies urinary symptoms such as dysuria. Constitutional Vitals: Vital Signs Temp Pulse Resp BP Pulse Ox 36.2 C 92 H 12 99/72 96 03/31/21 06:43 03/31/21 06:43 03/31/21 06:43 03/31/21 06:43 03/31/21 06:43 Period Temp Pulse Resp BP Sys/Baptiste Pulse Ox Last 24 Hr 36.2 C-37.1 C 78-93 12-20 94-112/60-79 95-97 Intake and Output 03/30/21 03/31/21 03/31/21 21:59 05:59 13:59 Intake Total 650 250 Output Total 800 Balance -150 250 Weight 100.199 kg Intake & Output: Intake & Output 03/30/21 03/31/21 03/31/21 21:59 05:59 13:59 Intake Total 650 250 Output Total 800 Balance -150 250 Weight 100.199 kg Intake: Nourishment/Supplement quantity 200 (ml) Oral 450 250 Output: Urine/Stool Mix 800 Other: Meal applesauce Percent of Meal Consumed 100% Feeding Ability Independent Stool Size Small Stool Color Yellow Yellow Stool Consistency Liquid Loose Loose # Bowel Movements 1 # of times incontinent of 1 Bowels General appearance: cooperative and no acute distress Head Head exam: Present atraumatic and normocephalic Eye Eye exam: Present EOMI and PERRL ENT ENT exam: Present mucous membranes moist, normal exam and normal external ear exam Neck Neck exam: Present normal inspection; Absent lymphadenopathy, tenderness and thyromegaly Respiratory Respiratory exam: Absent accessory muscle use, respiratory distress and wheezes Cardiovascular Cardiovascular exam: Present normal rate and rhythm; Absent JVD GI/Abdominal GI/Abdominal exam: Present normal bowel sounds and soft; Absent organomegaly and tenderness Extremities Exam Extremities exam: Present full ROM, normal capillary refill and normal inspection; Absent tenderness Neurological Exam Neurological exam: Present alert, CN II-XII intact and oriented X3; Absent motor sensory deficit Psychiatric Psychiatric exam: Present normal affect and normal mood; Absent anxious and depressed Skin Skin exam: Present dry and intact OBJ DATA Labs CBC & Chem 7: 03/29/21 05:42 03/29/21 05:42 Labs: Abnormal Lab Results 03/29/21 03/29/21 05:42 05:42 RBC 2.76 L Hgb 9.4 L Hct 29.3 L MCV 106.2 H MCH 34.1 H RDW 18.6 H MPV 10.9 H Lymph # (Auto) 1.00 L Chloride 114 H Carbon Dioxide 20 L BUN 7 L Calcium 7.8 L Meds: Medications Acetaminophen (Acetaminophen 325 Mg Tablet) 650 mg PO Q6HP PRN PRN Reason: PAIN/FEVER > 101 Last Admin: 03/31/21 06:01 Dose: 650 mg Documented by: Chlordiazepoxide HCl (Chlordiazepoxide 25 Mg Capsule) 50 mg PO Q4HP PRN PRN Reason: Alcohol Withdrawal Last Admin: 03/25/21 23:01 Dose: 50 mg Documented by: Clonidine HCl (Clonidine Hcl 0.1 Mg Tablet) 0.1 mg PO Q4HP PRN PRN Reason: Hypertension SBP>150 Cyclobenzaprine HCl (Cyclobenzaprine 10 Mg Tablet) 5 mg PO TIDP PRN PRN Reason: Muscle Spasm Enoxaparin Sodium (Enoxaparin 40 Mg/0.4 Ml Syringe) 40 mg SQ DAILY [facility] Last Admin: 03/31/21 08:01 Dose: 40 mg Documented by: Folic Acid (Folic Acid 1 Mg Tablet) 5 mg PO DAILY [facility] Last Admin: 03/31/21 08:01 Dose: 5 mg Documented by: Gabapentin (Gabapentin 300 Mg Capsule) 300 mg PO DAILY [facility] Last Admin: 03/31/21 08:02 Dose: 300 mg Documented by: Haloperidol Lactate (Haloperidol Lactate 5 Mg/Ml Vial) 5 mg IV Q8HP PRN PRN Reason: ANXIETY/SEDATION Potassium Chloride 40 meq/ (Dextrose) 520 mls @ 130 mls/hr IV UD PRN PRN Reason: Potassium < 3 Magnesium Sulfate (Magnesium Sulfate) 2 gm in 50 mls @ 50 mls/hr IV UD PRN PRN Reason: Magnesium </= 1.6 Thiamine HCl 100 mg/ Sodium (Chloride) 51 mls @ 50 mls/hr IV DAILY [facility] Last Admin: 03/31/21 08:01 Dose: 50 mls/hr Documented by: Iron Carb/Multivit/[place]/Folic Acid (Multivit,Ther Iron,Ca,Fa & Min 1 Tablet) 1 tab PO DAILY [facility] Last Admin: 03/31/21 08:02 Dose: 1 tab Documented by: Lactulose (Lactulose 20 Gm/30 Ml Oral.Gilda) 20 gm PO DAILYP PRN PRN Reason: Constipation Loperamide HCl (Loperamide 2 Mg Capsule) 2 mg PO PRN PRN PRN Reason: Diarrhea Last Admin: 03/30/21 22:03 Dose: 2 mg Documented by: Losartan Potassium (Losartan 50 Mg Tablet) 50 mg PO [facility]ILY [facility] Last Admin: 03/31/21 08:03 Dose: 50 mg Documented by: Magnesium Hydroxide (Magnesium Hydroxide 30 Ml Oral.Susp) 30 ml PO DAILYP PRN PRN Reason: Constipation Metoclopramide HCl (Metoclopramide 10 Mg/2 Ml Vial) 10 mg IV Q6HP PRN PRN Reason: Nausea And Vomiting Nortriptyline HCl (Nortriptyline 25 Mg Capsule) 75 mg PO [facility] Last Admin: 03/30/21 22:03 Dose: 75 mg Documented by: Olanzapine (Olanzapine 5 Mg Tablet) 5 mg PO [facility] Last Admin: 03/30/21 22:02 Dose: 5 mg Documented by: Ondansetron HCl (Ondansetron 4 Mg/2 Ml Vial) 4 mg IV Q4HP PRN PRN Reason: Nausea And Vomiting Oxycodone/Acetaminophen (Oxycodone/Apap 5/325mg Tablet) 1 tab PO Q4HP PRN PRN Reason: PAIN LEVEL 3-6 Last Admin: 03/31/21 08:02 Dose: 1 tab Documented by: Pantoprazole Sodium ([facility]op[facility] 40 Mg Tablet) [facility] Last Admin: 03/31/21 07:33 Dose: 40 mg Documented by: Polyethylene Glycol (Polyethylene Glycol 3350 17 Gm Packet) 17 gm PO DAILYP PRN PRN Reason: Constipation Potassium Chloride (Potassium Chloride 20 Meq Tablet) 40 meq PO UD PRN PRN Reason: Potssium is 3-3.5 Last Admin: 03/27/21 08:22 Dose: 40 meq Documented by: Potassium Chloride (Potassium Chloride 20 Meq Tablet) 40 meq PO UD PRN PRN Reason: Potassium < 3 Last Admin: 03/28/21 08:19 Dose: 40 meq Documented by: Potassium Chloride (Potassium Chloride 20 Meq Tablet) 20 meq PO DAILY [facility] Last Admin: 03/31/21 08:02 Dose: 20 meq Documented by: Senna (Sennosides 1 Tablet) 2 tab PO DAILYP PRN PRN Reason: Constipation Sodium Chloride (0.9 % Sodium Chloride 10 Ml Syringe) 10 ml IV Q8 [facility] Last Admin: 03/31/21 05:44 Dose: 10 ml Documented by: Tramadol HCl (Tramadol 50 Mg Tablet) 50 mg PO Q6HP PRN; Protocol PRN Reason: pain Last Admin: 03/31/21 12:15 Dose: 50 mg Documented by: A/P Assessment and plan (1) GERD (gastroesophageal reflux disease): Status: Chronic (2) Back pain: Status: Chronic (3) Delirium tremens: Status: Acute (4) Anemia, normocytic normochromic: Status: Acute (5) Depression: Status: Chronic Narrative A/P Narrative: Assessment and Plans: 1. Delirium Tremens: Symptom-telles and also timeframe-telles, patient is out of delirium tremens phase, okay to discontinue CIWA protocol with CIWA scoring Awaiting placement 2. Klebsiella pneumoniae UTI: Finished Rocephin 3. GERD: Continue oral PPI 4. Normochromic normocytic anemia: cbc w/ auto diff in the morning to trend H/H; transfuse pRBC if hemoglobin <7.0, active bleeding, or symptomatic 5. Chronic back pain: Flexeril PRN muscle spasm Tramadol PRN moderate pain Percocet PRN severe pain 6. Depression: Nortriptyline Olanzepine GI pp: Continue oral PPI DVT ppx: Lovenox Code status: Full Prognosis: stable Disposition: inpatient med surg Time Spent With Patient Time: Total time spent is greater than 50% in coordination of care (as documented) at patient's floor/unit and/or counseling patient: Total time spent with greater than 50% in coordination of care (as documented) at patient's floor/unit and/or counseling patient:: 25 - 35 minutes
[2021-03-31] MEDS: LOPERAMIDE 2 MG CAPSULE PO PRN ×2 (14:41→20:17)
[2021-03-31] MEDS: OLANZapine 5 MG TABLET PO SCH (20:17)
[2021-03-31] MEDS: NORTRIPTYLINE 25 MG CAPSULE PO SCH (20:17)
[2021-04-01] MEDS: oxyCODONE/APAP 5/325MG TABLET PO PRN (01:37)
[2021-04-01] MEDS: 0.9 % SODIUM CHLORIDE 10 ML SYRINGE IV SCH (05:40)
[2021-04-01] MEDS: traMADol 50 MG TABLET PO PRN (07:44)
[2021-04-01] MEDS: PANTOPRAZOLE 40 MG TABLET PO SCH (07:45)
[2021-04-01] MEDS: ENOXAPARIN 40 MG/0.4 ML SYRINGE SQ SCH (08:14)
[2021-04-01] MEDS: FOLIC ACID 1 MG TABLET PO SCH (08:15)
[2021-04-01] MEDS: MULTIVIT,THER IRON,CA,FA & MIN 1 TABLET PO SCH (08:15)
[2021-04-01] MEDS: GABAPENTIN 300 MG CAPSULE PO SCH (08:15)
[2021-04-01] MEDS: POTASSIUM CHLORIDE 20 MEQ TABLET PO SCH (08:15)
[2021-04-01] MEDS: LOSARTAN 50 MG TABLET PO SCH (08:15)
[2021-04-01] MEDS: THIAMINE 100 MG in 0.9 % SODIUM CHLORIDE 50 ML IV SCH (08:15)
--- NOTE | 2021-04-01 12:25 | Discharge Summary ---
Discharge Provider Provider Patient information: Note initiated : 04/01/21 at 12:24 pm Service Date, if different from initiated Date: [] Patient: Toshia Riley a 65 y/o F admitted on 03/25/21 for fall. Chief Complaint: [delirium tremens, urinary tract infection] History of present illness: Ms. Riley is a 65 year old F Presents to the ED with generalized weakness and after falling, she called 911. She has been to the ED multiple times in the past few months for chronic abdominal pain. Had colonoscopy and EGD by Dr. Quiles. She also sees pain clinic for chronic right hip pain and radiculopathy. Also chronic low back pain. She says she has memory issues and has been worsening over the past year. Her fianc also has memory issues it sounds like. She is on several psychiatric medications. She denies drug use other than marijuana. She has 4 to 5 glasses of wine every night. Multiple abdominal imaging including CTs and ultrasounds which shows fatty liver. She has been afebrile. She seems confused at times per nurse's notes and a friend who called and talked with the ED staff. She does complain of constipation. Complains of dry skin and thin hair. CT brain was done in the ED which is unremarkable. She had a Mary test in the ED that was negative. Vital signs are essentially unremarkable except for a mild tachycardia. She has a mild anemia and microcytosis. Ammonia level was unremarkable urine was cloudy with some ketones but did not show any leukocyte esterase. Urine drug screen just showed positive for oxycodone which she takes. Patient states her last drink of alcohol was several nights ago. She says she does have withdrawal symptoms when she goes without for a few days. Date of admission: 03/25/21 17:29 Discharge date: 04/01/21 Primary care physician: Kristin Chance Consults: 03/25/21 Consult to Physician [CONS] Stat Comment: Consulting Provider: Jose D Becker Reason For Exam: Physician to Consult 03/27/21 10:10 Consult to Physician [CONS] Routine Comment: Consulting Provider: [facility] Reason For Exam: Physician to Consult 03/29/21 08:50 Consult to Physician [CONS] Routine Comment: snf referral Consulting Provider: [facility] Reason For Exam: Physician to Consult 03/31/21 08:34 Consult to Physician [CONS] Routine Comment: traumatic nail avulsion and toe nail care Consulting Provider: Dharmesh Dsouza Reason For Exam: Physician to Consult Discharge Meds Discharge Medications Home Medications losartan 50 mg PO DAILY 07/30/20 [History Confirmed 03/25/21 Last Taken Unknown] oxycodone 10 mg PO QID 07/30/20 [History Confirmed 03/26/21 Last Taken Unknown] cyanocobalamin (vitamin B-12) 1,000 mcg IM QMONTH 11/09/20 [History Confirmed 03/25/21 Last Taken Unknown] nortriptyline 75 mg PO QHS 11/09/20 [History Confirmed 03/26/21 Last Taken Unknown] prochlorperazine maleate 10 mg PO Q6H PRN 03/26/21 [History Confirmed 03/26/21 Last Taken Unknown] folic acid 2 mg PO QDAY #60 tab 03/27/21 [Rx Last Taken Unknown] COURSE Hospital Course Hospital course: 03/26 Patient became severely agitated last night hallucinating. Received 6 mg of Ativan. Slept for the remainder of the evening. She is awake now and calm. Mildly confused. 03/27 Patient feeling better. Says she slept better than the previous night. No new complaints. Good BMs. Low CIWA scores last night. Mildly low potassium. 03/28 Patient sitting up in chair sleeping. Arousable. No overnight issues. Pending a.m. labs. Pending placement. 03/29 No overnight event or new complaints. Patient weak. Diarrhea continues we will check C. difficile. Some confusion or forgetfulness, did get 2 mg Ativan last night. 03/30 Patient states he is feeling better today. She sitting up in a chair eating breakfast. No complaints. Patient states diarrhea is improving. 03/31: There was no major overnight events. CIWA score up to 7 but mostly 1. Afebrile. Patient is c/o back muscle spasm. Denies fever or chills or sweating. Denies anxiety. Denies urinary symptoms such as dysuria. 04/01: clinically stable. Accepted by and being discharged to SNF. Discharge diagnosis: delirium tremens, urinary tract infection Time Spent with Patient Time attestation: Total time spent providing and/or coordinating discharge services: 03/26 Patient became severely agitated last night hallucinating. Received 6 mg of Ativan. Slept for the remainder of the evening. She is awake now and calm. Mildly confused. 03/27 Patient feeling better. Says she slept better than the previous night. No new complaints. Good BMs. Low CIWA scores last night. Mildly low potassium. 03/28 Patient sitting up in chair sleeping. Arousable. No overnight issues. Pending a.m. labs. Pending placement. 03/29 No overnight event or new complaints. Patient weak. Diarrhea continues we will check C. difficile. Some confusion or forgetfulness, did get 2 mg Ativan last night. 03/30 Patient states he is feeling better today. She sitting up in a chair eating breakfast. No complaints. Patient states diarrhea is improving. 03/31: There was no major overnight events. CIWA score up to 7 but mostly 1. Afebrile. Patient is c/o back muscle spasm. Denies fever or chills or sweating. Denies an xiety. Denies urinary symptoms such as dysuria. 04/01: clinically stable. Accepted by and being discharged to SNF. EXAM Constitutional Vitals: Temp Pulse Resp BP Pulse Ox 36.1 C 102 H 20 110/65 93 04/01/21 05:39 04/01/21 05:39 04/01/21 05:39 04/01/21 05:39 04/01/21 05:39 General appearance: cooperative and no acute distress Head Head exam: Present atraumatic and normocephalic Eye Eye exam: Present EOMI and PERRL ENT ENT exam: Present mucous membranes moist, normal exam and normal external ear exam Neck Neck exam: Present normal inspection; Absent lymphadenopathy, tenderness and thyromegaly Respiratory Respiratory exam: Absent accessory muscle use, respiratory distress and wheezes Cardiovascular Cardiovascular exam: Present normal rate and rhythm; Absent JVD GI/Abdominal GI/Abdominal exam: Present normal bowel sounds and soft; Absent organomegaly and tenderness Extremities Exam Extremities exam: Present full ROM, normal capillary refill and normal inspecti on; Absent tenderness Neurological Exam Neurological exam: Present alert, CN II-XII intact and oriented X3; Absent motor sensory deficit Psychiatric Psychiatric exam: Present normal affect and normal mood; Absent anxious and depressed Skin Skin exam: Present dry and intact Discharge Plan Patient/Caregiver Discharge Instructions Activity: increase activity as tolerated Diet: Regular Diet Prescriptions: New folic acid 1 mg tablet 2 mg PO QDAY Qty: 60 RF: 0 Continued losartan 100 mg tablet 50 mg PO DAILY RF: 0 oxycodone 10 mg tablet 10 mg PO QID RF: 0 cyanocobalamin (vitamin B-12) 1,000 mcg/mL Solution 1,000 mcg IM QMONTH RF: 0 nortriptyline 50 mg Capsule 75 mg PO QHS RF: 0 prochlorperazine maleate 10 mg Tablet 10 mg PO Q6H PRN (Reason: Sleep) RF: 0 Discontinued tramadol 50 mg tablet 50 mg PO Q6H PRN (Reason: pain) Qty: 10 RF: 0 Follow Up Plan Follow up with: Kristin Chance ARNP [Primary Care Provider] - Patient Disposition: Xfer SNF Prognosis: Undetermined Rehab Potential: Fair I certify that the patient requires SNF services: Yes Overall status at discharge: patient is back to baseline Discharge Orders: Discharge Order (Routine); Ordered 04/01/21 Ordered By: Sameer Bradshaw
[2021-04-02] MEDS ORDERED: THIAMINE 100 MG TABLET PO SCH (09:00)
[2021-04-04 16:02] LABS: Opiate Confirmation Negative
== END 2021-04-01 14:10 | DRG 897 ==
LOC: MEDSUR 09:55 → ED 09:55 → OBSVTOIN 17:29 → MEDSUR 17:35
PROVIDERS: ADMIT Internal Medicine; ATTEND Internal Medicine